=== PATIENT | male | born 1970 | race Caucasian/White ===

== ENCOUNTER 2016-10-07 10:33 | Emergency (ER) | payer MEDICARE ==
[2016-10-07 10:55] VITALS: TEMP 97.5
--- NOTE | 2016-10-07 11:10 | ED.PDOC ---
History of Present Illness - General Chief Complaint: Problem Stated Complaint: decreased appetite, urinary hesitancy Time Seen by Provider: 10/07/16 11:04 Source: patient Exam Limitations: no limitations - History of Present Illness Initial Comments: Mr. Christ Philip 46 y/o male stated that he has chronic alcoholism drinking a quart of whisky everyday the last 25 years and went for detox x 1 but paid more than $100 does want to go back anymore. Had history of chronic pancreatitis and pancreatic pseudocyst which was drained 3 x in 2016.His last drink was an hour ago.Brought by because of decrease appetite and urinary hesitancy. Timing/Duration: intermittent Improving Factors: nothing Worsening Factors: nothing Associated Symptoms: loss of appetite Allergies/Adverse Reactions: Allergies Penicillins Allergy (Verified 10/07/16 10:55) Home Medications: Ambulatory Orders Lisinopril 20 mg PO DAILY 04/24/14 Metoprolol Tartrate [Lopressor] 50 mg PO BID 04/24/14 Trazodone HCl 100 mg PO BEDTIME 04/24/14 Furosemide 40 mg PO DAILY 08/12/14 Insulin Glargine 100U/ml [Lantus] 30 unit SUBCU BEDTIME 08/12/14 Spironolactone [Aldactone] 25 mg PO BID #60 tab 03/14/15 Insulin Aspart [Novolog] 100 unit SC .SLIDING SCALE PRN 07/27/15 LORazepam [Ativan] 1 mg PO TID PRN 07/27/15 Acetaminophen W/ Codeine [Tylenol W/ CODEINE #3] 1 ea PO Q6HR PRN #15 11/07/15 Buspirone HCl 10 mg PO TID PRN 11/07/15 Ciprofloxacin [Cipro] 500 mg PO BID #20 tab 11/07/15 Levalbuterol Nebs [Xopenex NEBS] 1.25 mg NEB RTQ8 PRN 11/07/15 Sertraline HCl [Zoloft] 100 mg PO DAILY 11/07/15 Varenicline Tartrate [Chantix] 1 mg PO BID 11/07/15 Acamprosate Calcium [Acamprosate Calcium Dr] 666 mg PO TID #180 tab 10/07/16 B-Complex Vitamins [Vitamin B-Complex] 1 tab PO BID #120 tab 10/07/16 Review of Systems - Review of Systems Constitutional: States: see HPI, other - loss of appetite EENTM: States: no symptoms reported Respiratory: States: no symptoms reported Cardiology: States: no symptoms reported Gastrointestinal/Abdominal: States: no symptoms reported Genitourinary: States: no symptoms reported Musculoskeletal: States: no symptoms reported Skin: States: no symptoms reported Neurological: States: no symptoms reported Endocrine: States: no symptoms reported Past Medical History (General) - Patient Medical History Hx Seizures: No Hx Stroke: No Hx Dementia: No Hx Asthma: No Hx of COPD: Yes Hx Cardiac Disorders: Yes Hx Congestive Heart Failure: Yes Hx Pacemaker: No Hx Hypertension: Yes Hx Thyroid Disease: No Hx Diabetes: Yes Hx Gastroesophageal Reflux: Yes - liver disease Hx Renal Disease: No Hx of HIV: No Hx MRSA: No Hx Other PMH: Yes - chronic alcoholism;chronic pancreatitis with pseudocyst Surgical History: other - drainage of pseudocyst - Vaccination History Hx Tetanus, Diphtheria Vaccination: No Hx Influenza Vaccination: Yes Hx Pneumococcal Vaccination: Yes - Social History Hx Tobacco Use: Yes Hx Chewing Tobacco Use: No Hx Alcohol Use: Yes - pint of wiskey daily Hx Substance Use: No Hx Substance Use Treatment: No Hx Depression: Yes Hx Physical Abuse: No Hx Emotional Abuse: No Hx Suspected Abuse: No - Activities of Daily Living Hospice Agency (if applicable):: None - Female History Patient is a Female of Child Bearing Age (10 -59 yrs old): No Patient : No Family Medical History - Family History Mother Family History: No Known Name: Maggie Johnson Age (years): 66 Living Status: Still Living Hx Family Asthma: No Hx Family Congestive Heart Failure: No Hx Family Hypertension: No Hx Family Stroke: No Hx Cardiac Disease: No Hx Family Diabetes: Yes Hx Family Cancer: No Physical Exam - Physical Exam General Appearance: Alert, Comfortable, No apparent distress Eye Exam: bilateral normal Ears, Nose, Throat: hearing grossly normal, normal ENT inspection, normal pharynx Neck: non-tender, full range of motion, supple Respiratory: chest non-tender, lungs clear, normal breath sounds, no respiratory distress Cardiovascular/Chest: normal peripheral pulses, regular rate, rhythm, no edema, no murmur Peripheral Pulses: radial,right: 2+, radial,left: 2+ Gastrointestinal/Abdominal: normal bowel sounds, non tender, soft, no organomegaly, no pulsatile mass Back Exam: normal inspection, no CVA tenderness, no vertebral tenderness Extremity: normal range of motion, non-tender, normal inspection, no calf tenderness Neurologic: no motor/sensory deficits, alert, normal mood/affect, oriented x 3 Skin Exam: normal color, warm/dry Lymphatic: no adenopathy Progress - Results/Orders Results/Orders: 10/07/16 11:24 Chest,1 View [RAD] Stat URINALYSIS Stat 10/07/16 11:30 Multiple Vitamin Inj [MVI Injectable] 10 ml Thiamine HCl Inj 100 mg Sodium Chloride 0.9% 1000ML [Ns 1000 ml] 1,000 ml IVS Q24H Laboratory Results WBC 11.5 K/mm3 (4.8-10.8) H 10/07/16 11:37 RBC 5.42 M/mm3 (4.70-6.10) 10/07/16 11:37 Hgb 18.9 gm/dL (14.0-18.0) H 10/07/16 11:37 Hct 53.9 % (42.0-52.0) H 10/07/16 11:37 MCV 99.5 fl (80.0-94.0) H 10/07/16 11:37 MCH 34.8 pg (27.0-31.0) H 10/07/16 11:37 MCHC 35.1 g/dL (33.0-37.0) 10/07/16 11:37 RDW 13.3 % (11.5-14.5) 10/07/16 11:37 Plt Count 191 K/mm3 (130-400) 10/07/16 11:37 MPV 6.9 fl (7.40-10.4) L 10/07/16 11:37 Absolute Neuts (auto) 8.10 K/uL (1.8-6.8) H 10/07/16 11:37 Absolute Lymphs (auto) 2.10 K/uL (1.0-3.4) 10/07/16 11:37 Absolute Monos (auto) 1.10 K/uL (0.2-0.8) H 10/07/16 11:37 Absolute Eos (auto) 0.20 K/uL (0.0-0.4) 10/07/16 11:37 Absolute Basos (auto) 0.10 K/uL (0.0-0.1) 10/07/16 11:37 Neutrophils % 70.1 % (42.0-78.0) 10/07/16 11:37 Lymphocytes % 17.9 % (20.0-50.0) L 10/07/16 11:37 Monocytes % 9.9 % (2.0-9.0) H 10/07/16 11:37 Eosinophils % 1.3 % (1.0-5.0) 10/07/16 11:37 Basophils % 0.8 % (0.0-2.0) 10/07/16 11:37 Sodium 136 mmol/L (135-145) 10/07/16 11:37 Potassium 3.0 mmol/L (3.6-5.0) L 10/07/16 11:37 Chloride 97 mmol/L (101-111) L 10/07/16 11:37 Carbon Dioxide 28 mmol/L (21-31) 10/07/16 11:37 Anion Gap 14.0 (12-18) 10/07/16 11:37 BUN 12 mg/dL (7-18) 10/07/16 11:37 Creatinine 0.90 mg/dL (0.6-1.3) 10/07/16 11:37 BUN/Creatinine Ratio 13.3 (10-20) 10/07/16 11:37 Random Glucose 186 mg/dL (70-105) H 10/07/16 11:37 Serum Osmolality 276.6 mOsm/L (275-295) 10/07/16 11:37 Calcium 8.1 mg/dL (8.4-10.2) L 10/07/16 11:37 Total Bilirubin 1.0 mg/dL (0.2-1.0) 10/07/16 11:37 AST 35 IU/L (10-42) 10/07/16 11:37 ALT 25 IU/L (10-60) 10/07/16 11:37 Alkaline Phosphatase 137 IU/L (42-121) H 10/07/16 11:37 Serum Total Protein 6.2 gm/dL (6.4-8.2) L 10/07/16 11:37 Albumin 3.1 g/dl (3.2-5.5) L 10/07/16 11:37 Globulin 3.1 gm/dL (2.3-3.5) 10/07/16 11:37 Albumin/Globulin Ratio 1.0 (1.1-1.9) L 10/07/16 11:37 Vital Signs - 8 hr 10/07/16 10/07/16 10:37 12:30 Temperature 97.5 F L Pulse Rate [ 99 H 77 pulse ox] Respiratory 20 20 Rate Blood Pressure 137/80 128/97 [Left Arm] O2 Sat by Pulse 98 94 L Oximetry 10/07/16 11:30 Multiple Vitamin Inj [MVI Injectable] 10 ml Thiamine HCl Inj 100 mg Sodium Chloride 0.9% 1000ML [Ns 1000 ml] 1,000 ml IVS Q24H Laboratory Results WBC 11.5 K/mm3 (4.8-10.8) H 10/07/16 11:37 RBC 5.42 M/mm3 (4.70-6.10) 10/07/16 11:37 Hgb 18.9 gm/dL (14.0-18.0) H 10/07/16 11:37 Hct 53.9 % (42.0-52.0) H 10/07/16 11:37 MCV 99.5 fl (80.0-94.0) H 10/07/16 11:37 MCH 34.8 pg (27.0-31.0) H 10/07/16 11:37 MCHC 35.1 g/dL (33.0-37.0) 10/07/16 11:37 RDW 13.3 % (11.5-14.5) 10/07/16 11:37 Plt Count 191 K/mm3 (130-400) 10/07/16 11:37 MPV 6.9 fl (7.40-10.4) L 10/07/16 11:37 Absolute Neuts (auto) 8.10 K/uL (1.8-6.8) H 10/07/16 11:37 Absolute Lymphs (auto) 2.10 K/uL (1.0-3.4) 10/07/16 11:37 Absolute Monos (auto) 1.10 K/uL (0.2-0.8) H 10/07/16 11:37 Absolute Eos (auto) 0.20 K/uL (0.0-0.4) 10/07/16 11:37 Absolute Basos (auto) 0.10 K/uL (0.0-0.1) 10/07/16 11:37 Neutrophils % 70.1 % (42.0-78.0) 10/07/16 11:37 Lymphocytes % 17.9 % (20.0-50.0) L 10/07/16 11:37 Monocytes % 9.9 % (2.0-9.0) H 10/07/16 11:37 Eosinophils % 1.3 % (1.0-5.0) 10/07/16 11:37 Basophils % 0.8 % (0.0-2.0) 10/07/16 11:37 Sodium 136 mmol/L (135-145) 10/07/16 11:37 Potassium 3.0 mmol/L (3.6-5.0) L 10/07/16 11:37 Chloride 97 mmol/L (101-111) L 10/07/16 11:37 Carbon Dioxide 28 mmol/L (21-31) 10/07/16 11:37 Anion Gap 14.0 (12-18) 10/07/16 11:37 BUN 12 mg/dL (7-18) 10/07/16 11:37 Creatinine 0.90 mg/dL (0.6-1.3) 10/07/16 11:37 BUN/Creatinine Ratio 13.3 (10-20) 10/07/16 11:37 Random Glucose 186 mg/dL (70-105) H 10/07/16 11:37 Serum Osmolality 276.6 mOsm/L (275-295) 10/07/16 11:37 Calcium 8.1 mg/dL (8.4-10.2) L 10/07/16 11:37 Total Bilirubin 1.0 mg/dL (0.2-1.0) 10/07/16 11:37 AST 35 IU/L (10-42) 10/07/16 11:37 ALT 25 IU/L (10-60) 10/07/16 11:37 Alkaline Phosphatase 137 IU/L (42-121) H 10/07/16 11:37 Serum Total Protein 6.2 gm/dL (6.4-8.2) L 10/07/16 11:37 Albumin 3.1 g/dl (3.2-5.5) L 10/07/16 11:37 Globulin 3.1 gm/dL (2.3-3.5) 10/07/16 11:37 Albumin/Globulin Ratio 1.0 (1.1-1.9) L 10/07/16 11:37 Urine Color Yellow (Yellow) 10/07/16 12:40 Urine Appearance Clear (Clear) 10/07/16 12:40 Urine pH 6.5 (4.5-7.8) 10/07/16 12:40 Ur Specific Redig 1.015 (1.005-1.030) 10/07/16 12:40 Urine Protein Trace mg/dL 10/07/16 12:40 Urine Glucose (UA) Negative mg/dL (Negative) 10/07/16 12:40 Urine Ketones Negative mg/dL (NEGATIVE) 10/07/16 12:40 Urine Blood Negative (Negative) 10/07/16 12:40 Urine Nitrite Negative 10/07/16 12:40 Urine Bilirubin Negative (NEGATIVE) 10/07/16 12:40 Urine Urobilinogen 2.0 mg/dL (0.2-1.0) H 10/07/16 12:40 Ur Leukocyte Esterase Negative (Negative) 10/07/16 12:40 Urine RBC 0 /hpf 10/07/16 12:40 Urine WBC 0 /hpf 10/07/16 12:40 Ur Epithelial Cells 0-1 /hpf 10/07/16 12:40 Urine Bacteria 0 10/07/16 12:40 10/07/16 11:30 Multiple Vitamin Inj [MVI Injectable] 10 ml Thiamine HCl Inj 100 mg Sodium Chloride 0.9% 1000ML [Ns 1000 ml] 1,000 ml IVS Q24H Laboratory Results WBC 11.5 K/mm3 (4.8-10.8) H 10/07/16 11:37 RBC 5.42 M/mm3 (4.70-6.10) 10/07/16 11:37 Hgb 18.9 gm/dL (14.0-18.0) H 10/07/16 11:37 Hct 53.9 % (42.0-52.0) H 10/07/16 11:37 MCV 99.5 fl (80.0-94.0) H 10/07/16 11:37 MCH 34.8 pg (27.0-31.0) H 10/07/16 11:37 MCHC 35.1 g/dL (33.0-37.0) 10/07/16 11:37 RDW 13.3 % (11.5-14.5) 10/07/16 11:37 Plt Count 191 K/mm3 (130-400) 10/07/16 11:37 MPV 6.9 fl (7.40-10.4) L 10/07/16 11:37 Absolute Neuts (auto) 8.10 K/uL (1.8-6.8) H 10/07/16 11:37 Absolute Lymphs (auto) 2.10 K/uL (1.0-3.4) 10/07/16 11:37 Absolute Monos (auto) 1.10 K/uL (0.2-0.8) H 10/07/16 11:37 Absolute Eos (auto) 0.20 K/uL (0.0-0.4) 10/07/16 11:37 Absolute Basos (auto) 0.10 K/uL (0.0-0.1) 10/07/16 11:37 Neutrophils % 70.1 % (42.0-78.0) 10/07/16 11:37 Lymphocytes % 17.9 % (20.0-50.0) L 10/07/16 11:37 Monocytes % 9.9 % (2.0-9.0) H 10/07/16 11:37 Eosinophils % 1.3 % (1.0-5.0) 10/07/16 11:37 Basophils % 0.8 % (0.0-2.0) 10/07/16 11:37 Sodium 136 mmol/L (135-145) 10/07/16 11:37 Potassium 3.0 mmol/L (3.6-5.0) L 10/07/16 11:37 Chloride 97 mmol/L (101-111) L 10/07/16 11:37 Carbon Dioxide 28 mmol/L (21-31) 10/07/16 11:37 Anion Gap 14.0 (12-18) 10/07/16 11:37 BUN 12 mg/dL (7-18) 10/07/16 11:37 Creatinine 0.90 mg/dL (0.6-1.3) 10/07/16 11:37 BUN/Creatinine Ratio 13.3 (10-20) 10/07/16 11:37 Random Glucose 186 mg/dL (70-105) H 10/07/16 11:37 Serum Osmolality 276.6 mOsm/L (275-295) 10/07/16 11:37 Calcium 8.1 mg/dL (8.4-10.2) L 10/07/16 11:37 Total Bilirubin 1.0 mg/dL (0.2-1.0) 10/07/16 11:37 AST 35 IU/L (10-42) 10/07/16 11:37 ALT 25 IU/L (10-60) 10/07/16 11:37 Alkaline Phosphatase 137 IU/L (42-121) H 10/07/16 11:37 Serum Total Protein 6.2 gm/dL (6.4-8.2) L 10/07/16 11:37 Albumin 3.1 g/dl (3.2-5.5) L 10/07/16 11:37 Globulin 3.1 gm/dL (2.3-3.5) 10/07/16 11:37 Albumin/Globulin Ratio 1.0 (1.1-1.9) L 10/07/16 11:37 Urine Color Yellow (Yellow) 10/07/16 12:40 Urine Appearance Clear (Clear) 10/07/16 12:40 Urine pH 6.5 (4.5-7.8) 10/07/16 12:40 Ur Specific Redig 1.015 (1.005-1.030) 10/07/16 12:40 Urine Protein Trace mg/dL 10/07/16 12:40 Urine Glucose (UA) Negative mg/dL (Negative) 10/07/16 12:40 Urine Ketones Negative mg/dL (NEGATIVE) 10/07/16 12:40 Urine Blood Negative (Negative) 10/07/16 12:40 Urine Nitrite Negative 10/07/16 12:40 Urine Bilirubin Negative (NEGATIVE) 10/07/16 12:40 Urine Urobilinogen 2.0 mg/dL (0.2-1.0) H 10/07/16 12:40 Ur Leukocyte Esterase Negative (Negative) 10/07/16 12:40 Urine RBC 0 /hpf 10/07/16 12:40 Urine WBC 0 /hpf 10/07/16 12:40 Ur Epithelial Cells 0-1 /hpf 10/07/16 12:40 Urine Bacteria 0 10/07/16 12:40 - EKG/XRAY/CT EKG: Sinus, no ST T wave changes Comments: heart rate-58 XRAY: chest - no acute abnormalities/radiologist Departure - Departure Clinical Impression: Alcoholism with alcohol dependence Qualifiers: Substance use status: unspecified alcohol-induced disorder Qualified Code(s): F10.29 - Alcohol dependence with unspecified alcohol-induced disorder Time of Disposition: 12:28 Disposition: Discharge to Home or Self Care Condition: Fair Departure Forms: ED Discharge - Pt. Copy, Patient Portal Self Enrollment Instructions: Alcohol Abuse and Alcoholism, DI for Alcohol Abuse and Alcoholism Referrals: India Francis NP [Primary Care Provider] - 1-2 Weeks Prescriptions: Acamprosate Calcium [Acamprosate Calcium Dr] 666 mg PO TID #180 tab B-Complex Vitamins [Vitamin B-Complex] 1 tab PO BID #120 tab Home Medications: Ambulatory Orders Lisinopril 20 mg PO DAILY 04/24/14 Metoprolol Tartrate [Lopressor] 50 mg PO BID 04/24/14 Trazodone HCl 100 mg PO BEDTIME 04/24/14 Furosemide 40 mg PO DAILY 08/12/14 Insulin Glargine 100U/ml [Lantus] 30 unit SUBCU BEDTIME 08/12/14 Spironolactone [Aldactone] 25 mg PO BID #60 tab 03/14/15 Insulin Aspart [Novolog] 100 unit SC .SLIDING SCALE PRN 07/27/15 LORazepam [Ativan] 1 mg PO TID PRN 07/27/15 Acetaminophen W/ Codeine [Tylenol W/ CODEINE #3] 1 ea PO Q6HR PRN #15 11/07/15 Buspirone HCl 10 mg PO TID PRN 11/07/15 Ciprofloxacin [Cipro] 500 mg PO BID #20 tab 11/07/15 Levalbuterol Nebs [Xopenex NEBS] 1.25 mg NEB RTQ8 PRN 11/07/15 Sertraline HCl [Zoloft] 100 mg PO DAILY 11/07/15 Varenicline Tartrate [Chantix] 1 mg PO BID 11/07/15 Acamprosate Calcium [Acamprosate Calcium Dr] 666 mg PO TID #180 tab 10/07/16 B-Complex Vitamins [Vitamin B-Complex] 1 tab PO BID #120 tab 10/07/16 Additional Instructions: FOLLOW UP WITH [facility] for alcohol detox,Recheck with primary md 10/08/2016
[2016-10-07] MEDS ORDERED: MULTIPLE VITAMIN INJ 10 ML, THIAMINE HCL INJ 100 MG in SODIUM CHLORIDE 0.9% 1000ML 1,00... IVS SCH (11:30)
[2016-10-07] MEDS ORDERED: SODIUM CHLORIDE 0.9% 1000ML 1,000 ML ONE (11:36)
[2016-10-07] MEDS ORDERED: MULTIPLE VITAMIN 10 ML VIAL ONE (11:36)
[2016-10-07] MEDS ORDERED: THIAMINE HCL INJ 100 MG/ML VIAL ONE (11:36)
--- NOTE | 2016-10-07 12:12 | RAD ---
SINGLE VIEW CHEST X-RAY. 10/07/2016 11:24 AM CDT INDICATION: Cough TECHNIQUE: Single frontal view of the chest was performed. COMPARISON: Chest x-ray 10/13/2015 FINDINGS: Mild peribronchial cuffing and prominent bilateral vasculature. The lungs are clear without consolidation. There are no effusions. No evidence of pneumothorax. The cardiomediastinal silhouette is stable. Osseous structures are unchanged. The visualized abdomen is unremarkable. IMPRESSION: No acute cardiopulmonary process. Electronically signed by: Carlitos Dey MD 10/07/2016 12:12 PM CDT
[2016-10-07 13:30] VITALS: BP 132/105; O2SAT 95
== END 2016-10-07 13:31 | disposition home or self-care (01) ==
LOC: ER 10:33
DX: F10.29 Alcohol dependence with unspecified alcohol-induced disorder (principal); K86.1 Other chronic pancreatitis; I11.0 Hypertensive heart disease with heart failure; I50.9 Heart failure, unspecified; J44.9 Chronic obstructive pulmonary disease, unspecified; K21.9 Gastro-esophageal reflux disease without esophagitis; Z88.0 Allergy status to penicillin; Z79.899 Other long term (current) drug therapy; Z79.4 Long term (current) use of insulin; Z87.891 Personal history of nicotine dependence
CPT/HCPCS: 36415; 71010; 80053; 81001; 85025; J3411; J7030

== ENCOUNTER → 2017-01-30 | Outpatient (CLI) | payer MEDICARE | END | disposition home or self-care (01) | LOC: GRHH 10:33 | DX: I50.9 Heart failure, unspecified (principal); E11.9 Type 2 diabetes mellitus without complications ==

== ENCOUNTER 2017-02-05 12:27 | Inpatient (IN) | payer MEDICARE ==
--- NOTE | 2017-02-05 12:28 | HP ---
SUPERVISING PHYSICIAN: RICH HOOD MD CHIEF COMPLAINT: Shortness of breath. HISTORY OF PRESENT ILLNESS: Mr. Philip is a 47 year-old male patient of Dr. Liao's at [facility]. He was seen in the clinic today for a followup from previous detox and an upper respiratory illness. It was noted that in the clinic he had a productive cough and was congested and was having significant shortness of breath with some wheezing and some lower extremity edema. He had been recently released from inpatient detox rehabilitation last week. On examination in the clinic it was noted that he was having some inspiratory expiratory wheezing, some crackles. He was given albuterol treatment that showed some increased air entry but noted that his 02 saturations on room air were in the 89% range. He was given additional treatment but with ambulation the patient was showing 80% on room air with no oxygen. He was placed on oxygen and increased to only 92% at that time and then given additional treatment and increased to 97% but continued to show decreased ambulatory effort without any supplemental oxygen. Given that he has a history of extensive chronic obstructive pulmonary disease from smoking multiple years and that he is not able to maintain 02 saturations without oxygen supplementation, Dr. Liao requested the patient be directly admitted for acute exacerbation of chronic obstructive pulmonary disease. The patient was directly admitted from the clinic to the medical/surgical floor for continuation of treatment and further evaluation. PAST MEDICAL HISTORY: 1. History of pancreatitis. 2. Diabetes mellitus type 2 on insulin therapy for the last several years. 3. Congestive heart failure without any current echocardiogram for review. 4. History of hypertension. 5. History of extensive alcohol abuse having been recently discharged from inpatient rehabilitation facility in the last 2 weeks. 6. Chronic obstructive pulmonary disease. 7. History of chronic tobacco abuse. PAST SURGICAL HISTORY: 1. Pancreatic stenting in 2017. CURRENT MEDICATIONS: Please refer to updated verified list of medications in medical records. Currently listed are: 1. Buspirone 15 mg 3 times a day as needed. 2. Vitamin B12 complex, 1 tablet twice a day. 3. Calcium supplement 666 mg 3 times a day. 4. Lasix 40 mg daily. 5. Xopenex treatments 1.25 mg every 8 hours as needed p.r.n. 6. Ativan 1 mg 3 times a day if needed. 7. Lopressor 25 mg twice a day. 8. Trazodone 100 mg at bedtime. 9. Spironolactone 25 mg twice a day. 10. Zoloft 100 mg daily. ALLERGIES: PENICILLIN FAMILY HISTORY: Positive for diabetes, pulmonary embolism, hypertension. SOCIAL HISTORY: The patient lives at home with his . 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 He does have a history of smoking a pack of cigarettes per day and currently he is a smoker. He drinks on a regular basis and admits that he drinks at least a half gallon of whiskey daily but had just been recently in an outpatient rehabilitation facility and has not had a drink in a little over a week to two weeks. REVIEW OF SYSTEMS: CONSTITUTIONAL: Reports that he has no fevers, chills, but notes that he has been feeling weak with general malaise and shaky. HEENT: He notes that he has had some nasal congestion with some shortness of breath and lightheadedness on standing. CHEST: Notes that he has had a cough, wheezing and some shortness of breath as noted in the history of present illness which has become more productive, yellow in nature and more purulent. ABDOMEN: No noted nausea or vomiting or diarrhea. . GENITOURINARY: Denies any dysuria, hematuria or other urinary symptoms. NEUROLOGICAL: Notes that he has some weakness, some dizziness but no syncopal episodes and has slight tremor which has been present for a length of time but has not worsened since discharge. EXTREMITIES: He has had some bilateral pedal edema. PHYSICAL EXAMINATION: VITAL SIGNS: Afebrile with temperature 98.8 with a pulse of 98, blood pressure 114/43, saturation 96% on nasal cannula at rest showing desaturations into the low 80s with room air with any exertional effort. Admission weight 68.0 kg. GENERAL: The patient appears ill-appearing and in some mild distress secondary to increased dyspnea. He is thin in appearance, well-kept. Appears to be well hydrated. He is alert and oriented. HEENT: Tympanic membranes are clear bilaterally. Pharynx is pink, moist with no lesions. NECK: Supple, non-tender with full range of motion. No jugular venous distention. CHEST: Lungs with notably decreased breath sounds throughout with inspiratory and expiratory wheezing in a prolonged expiratory phase. There were some faint rales noted on the left as well as right and continued wheezing throughout. CARDIOVASCULAR: Regular rate and rhythm without appreciable murmurs, rubs, or gallops. ABDOMEN: Soft, non-tender, positive bowel sounds. EXTREMITIES: No cyanosis, clubbing, or edema. NEUROLOGIC: He alert and oriented x 3. Facial features are symmetrical. Extraocular movements within normal limits. LABORATORY: White count on admission 9.3, hemoglobin 13.6, hematocrit 39.3. RBC indices indicated a macrocytic hyperchromic presentation with platelet count being 217,000. Differential did show an early left shift. Coagulation studies showed a PT of 11.8 with PTT of 29.6. Chemistries showed hyponatremia with a sodium of 132, potassium 3.6, C02 of 26 with BUN less than 5, creatinine 0.6. Glucose 157, calcium 7.5. Liver functions showed normal bilirubin at 0.4 but elevated direct bilirubin at 0.3. AST and ALT within normal limits. Alkaline phosphatase elevated at 125. BNP normal at 50.5. Amylase and lipase both normal. Serum total protein low at 4.8 as well as albumin at 1.6. Urinalysis within normal limits. ,MICROBIOLOGY: Blood cultures pending. Influenza type A and B by antigen negative for both. RADIOLOGY: Chest x-ray per radiology interpretation shows normal heart size with lung lazo being clear with no acute chest process initially on examination. ASSESSMENT: 1. Acute exacerbation of chronic obstructive pulmonary disease with 02 saturations on room air with mild respiratory distress prior to admission. 2. Acute bronchitis secondary to #1 with concerns for early pneumonia, community acquired. 3. History of congestive heart failure with normal BNP on admission with no echocardiogram on admission for review with the patient having bilateral lower extremity edema. 4. Extensive history of ethanol intake, recently having finished inpatient rehabilitation within the last week and a half. 5. History of pancreatic pseudocyst. 6. Diabetes mellitus type 2, on insulin. 7. Hypertension. 8. History of pancreatitis requiring pancreatic stenting in 2017. 9. Chronic tobacco abuse. 10. Electrolyte imbalance with hyponatremia in patient with concerns for developing early pneumonia. PLAN: The patient is to be directly to the medical/surgical floor for initiation of antibiotic therapy and aggressive pulmonary hygiene. He will be started on Duoneb treatments along with parenteral antibiotics to include azithromycin and Rocephin, with cultures for sputum pending. Will plan to start him on at least 1 liter of saline in efforts to correct his sodium level and closely monitoring his I&Os and respiratory effort. Will resume his home medications tomorrow that include Aldactone and Lasix after further clinical evaluation. Will start him on a 21 mg nicotine patch in efforts to assist with smoking cessation. He will be started on Protonix for gastric protection as well as starting on a sliding scale as per protocol. After breathing treatment , it was noted that he was no longer having any significant wheezing, therefore , will hold off on steroids at this point and closely monitor. Hopefully, with a good 24 to 48 hours or aggressive pulmonary hygiene and antibiotic therapy, the patient will clinically show to be well enough to be continued in an outpatient setting treatment plan. Will monitor his I&O's closely and plan to repeat his laboratory studies in the morning to include a CBC and CMP. Will need to monitor for early signs of withdrawal, although just finished rehabilitation treatment plan and is on multiple medications. Those will be resumed once they are updated and verified in the computer. Anticipate length of stay to be at least 2 to 3 days and until clinical stable will continue to monitor and treat appropriately. #[id number] [facility]
[2017-02-05] MEDS ORDERED: DEXTROSE 50% 25 GM/50 ML SYG IV PRN (12:45)
[2017-02-05] MEDS ORDERED: ACETAMINOPHEN 325 MG TAB PO PRN (12:45)
[2017-02-05] MEDS ORDERED: ALBUTEROL SULFATE 2.5 MG/3 ML VIAL NEB PRN (12:45)
[2017-02-05] MEDS ORDERED: SODIUM CHLORIDE 0.9% (FLUSH) 10 ML SYG IV PRN (12:45)
[2017-02-05] MEDS ORDERED: GLUCAGON INJ 1 MG VIAL SUBCU PRN (12:45)
[2017-02-05] MEDS ORDERED: IV SET AND CAP CHANGE INJ INJ SCH (13:00)
[2017-02-05] MEDS ORDERED: cefTRIAXone SODIUM 1 GM VIAL ONE (13:31)
[2017-02-05] MEDS ORDERED: SODIUM CHL 0.9% 50ML MIN-BAG+ 50 ML IVPB ONE (13:31)
--- NOTE | 2017-02-05 13:31 | RAD ---
Chest two views INDICATION: COPD exacerbation COMPARISON: October 07 IMPRESSION: Normal heart size. Tortuous aorta. Lungs are clear. No acute chest process. Stable chest Electronically signed by: Dylon Marie MD 02/05/2017 1:29 PM CDT
[2017-02-05] MEDS: NICOTINE PATCH 21 MG TD SCH (13:33)
[2017-02-05] MEDS: cefTRIAXone SODIUM 1 GM in SODIUM CHL 0.9% 50ML MIN-BAG+ 50 ML IVPB SCH (13:34)
[2017-02-05] MEDS ORDERED: SODIUM CHLORIDE 0.9% 250ML 250 ML ONE (14:29)
[2017-02-05] MEDS ORDERED: AZITHROMYCIN IV 500 MG VIAL IVPB ONE (14:29)
[2017-02-05] MEDS: AZITHROMYCIN IV 500 MG in SODIUM CHLORIDE 0.9% 250ML 250 ML IVPB SCH (14:35)
[2017-02-05] MEDS ORDERED: PANTOPRAZOLE SODIUM IV 40 MG VIAL IV SCH (16:30)
[2017-02-05] MEDS: IPRATROPIUM/ALBUTEROL 3 ML VIAL INH SCH ×2 (16:35→20:15)
[2017-02-05] MEDS: KCL 20 MEQ/NS 1,000 ML IVS PRN (16:44)
[2017-02-05] MEDS: INSULIN LISPRO 100 UNITS/ML PEN SUBCU SCH ×2 (17:04→21:59)
[2017-02-05] MEDS ORDERED: LORazepam 1 MG TAB PO PRN (19:16)
[2017-02-05] MEDS ORDERED: METOPROLOL TARTRATE 25 MG TAB ONE (20:23)
[2017-02-05] MEDS ORDERED: busPIRone HCL 5 MG TAB ONE (20:24)
[2017-02-05] MEDS ORDERED: NON-FORMULARY MEDICATION 1 EA MIS (Buspirone Hcl [Buspirone Hcl] 15 MG) PO SCH (21:00)
[2017-02-05] MEDS ORDERED: METOPROLOL TARTRATE 25 MG PO SCH (21:00)
[2017-02-05] MEDS: traZODone HCL 100 MG TAB PO SCH (21:16)
[2017-02-05] MEDS: ACAMPROSATE CALCIUM 666 MG PO SCH (21:16)
[2017-02-05] MEDS: SPIRONOLACTONE 25 MG TAB PO SCH (21:16)
[2017-02-05] MEDS ORDERED: LEVALBUTEROL NEBS 1.25 MG/3 ML VIAL NEB PRN (22:43)
--- NOTE | 2017-02-05 22:44 | PCM.CORE ---
Physician DVT/VTE - Nurse DVT Assessment & Total Each Risk Factor Represents 3 Points: Medical PT with Hx of NH, CHF, Severe infection/sepsis Each Risk Factor Represents 1 Point: Age 41-60, Hx of smoking past year Each Risk Factor is 1 Point: Serious Lung disease (pnemonia <1month, COPD, emphysema,etc) DVT Assessment Score: 6 - 5 or more Very High Risk Treatments: Early Ambulation *, Sequential Compression Device Pharmacological: Enoxaparin 40mg SQ Daily
[2017-02-05] MEDS ORDERED: ENOXAPARIN SODIUM 40 MG/0.4 ML SYG SUBCU SCH (23:00)
[2017-02-05] MEDS: LEVALBUTEROL NEBS 1.25 MG/3 ML VIAL NEB SCH (23:46)
[2017-02-06] MEDS: KCL 20 MEQ/NS 1,000 ML IVS PRN ×3 (02:01→20:23)
[2017-02-06] MEDS: PANTOPRAZOLE SODIUM TAB 40 MG PO SCH (06:06)
--- NOTE | 2017-02-06 07:20 | RAD ---
Chest two views INDICATION: COPD exacerbation COMPARISON: February 05 IMPRESSION: Normal heart size. No focal infiltrate effusion or pneumothorax. Tortuous aorta. Stable chest Electronically signed by: Dylon Marie MD 02/06/2017 7:19 AM CDT
[2017-02-06] MEDS ORDERED: SPIRONOLACTONE 25 MG TAB ONE (07:53)
[2017-02-06] MEDS ORDERED: busPIRone HCL 5 MG TAB ONE (07:53)
[2017-02-06] MEDS ORDERED: METOPROLOL TARTRATE 25 MG TAB ONE (07:54)
[2017-02-06] MEDS ORDERED: FUROSEMIDE 40 MG TAB ONE (07:55)
[2017-02-06] MEDS: LEVALBUTEROL NEBS 1.25 MG/3 ML VIAL NEB SCH ×3 (08:01→23:35)
[2017-02-06] MEDS: FUROSEMIDE 40 MG TAB PO SCH (09:24)
[2017-02-06] MEDS: SPIRONOLACTONE 25 MG TAB PO SCH ×3 (09:24→20:27)
[2017-02-06] MEDS: NICOTINE PATCH 21 MG TD SCH (09:24)
[2017-02-06] MEDS: busPIRone HCL 5 MG TAB PO SCH ×3 (09:25→20:27)
[2017-02-06] MEDS: METOPROLOL TARTRATE 25 MG TAB PO SCH ×3 (09:25→16:55)
[2017-02-06] MEDS: INSULIN LISPRO 100 UNITS/ML PEN SUBCU SCH ×4 (09:32→21:32)
[2017-02-06] MEDS: ACAMPROSATE CALCIUM 666 MG PO SCH ×3 (09:34→20:28)
[2017-02-06] MEDS ORDERED: cefTRIAXone SODIUM 1 GM VIAL ONE (14:48)
[2017-02-06] MEDS ORDERED: SODIUM CHL 0.9% 50ML MIN-BAG+ 50 ML IVPB ONE (14:48)
[2017-02-06] MEDS ORDERED: SODIUM CHLORIDE 0.9% 250ML 250 ML ONE (14:48)
[2017-02-06] MEDS ORDERED: AZITHROMYCIN IV 500 MG VIAL IVPB ONE (14:49)
[2017-02-06] MEDS: cefTRIAXone SODIUM 1 GM in SODIUM CHL 0.9% 50ML MIN-BAG+ 50 ML IVPB SCH (14:58)
[2017-02-06] MEDS: AZITHROMYCIN IV 500 MG in SODIUM CHLORIDE 0.9% 250ML 250 ML IVPB SCH (16:10)
[2017-02-06] MEDS ORDERED: ENOXAPARIN SODIUM 40 MG/0.4 ML SYG SUBCU ONE (19:33)
[2017-02-06] MEDS: traZODone HCL 100 MG TAB PO SCH (20:27)
[2017-02-06] MEDS ORDERED: ENOXAPARIN SODIUM 40 MG/0.4 ML SYG SUBCU SCH (21:00)
--- NOTE | 2017-02-06 21:38 | PN ---
DATE: 02/06/17 SUBJECTIVE: The patient is sitting up in the bed feeling better. He has not been very active and is encouraged to increase his level of activities today. Have ordered an ambulation study to check on his requirements of oxygen before he is able to go home. He seems to be breathing better today than yesterday. Still with a cough with minimal sputum production. OBJECTIVE: Afebrile, pulse 105, blood pressure 112/79, room air 98%. LUNGS: Have diminished breath sounds with occasional rhonchi, especially in the left base area. HEART: Tones are regular. ABDOMEN: Soft. He is quite thin. He stopped smoking when he entered into the hospital and is encouraged to stay stopped if at all possible. LABORATORY: Potassium is up to 3.8, creatinine is 0.57, glucose 126, calcium is low at 7.2, but albumin is also very low at 1.6. Will try an increased protein supplement diet to assist, especially when he gets home. Awaiting ambulation studies to evaluate for need of oxygen use at home. ASSESSMENT: 1. Chronic obstructive pulmonary disease with an acute exacerbation with mild respiratory distress and hypoxia noted. 2. Acute bronchitis associated with the chronic obstructive pulmonary disease , must rule out early pneumonia community acquired. 3. History of congestive heart failure with a normal BNP on admission, yet with no echocardiogram for review with the patient presenting with some bilateral lower extremity edema. 4. Extensive history of ethanol intake recently having finished inpatient rehabilitation within the last 10 days. 5. History of pancreatic pseudocyst. 6. Diabetes mellitus type 2 on insulin. 7. Hypertension. 8. History of pancreatitis requiring pancreatic stenting in 2017. 9. Chronic tobacco abuse, still smoking. Encouraged to stop. 10. History of electrolyte imbalance with hyponatremia showing some improvement. PLAN: Await ambulation studies in anticipation of home with continued treatment course. The patient will require ongoing pulmonary hygiene. Special close attention to stopping all smoking must be most important and the clinic will work with him in that direction. Reevaluate in the morning. #[id number] [facility]ENTERMaggie
[2017-02-07] MEDS: KCL 20 MEQ/NS 1,000 ML IVS PRN (04:14)
[2017-02-07] MEDS: PANTOPRAZOLE SODIUM TAB 40 MG PO SCH (06:28)
[2017-02-07] MEDS ORDERED: SODIUM CHLORIDE 0.9% 250ML 0 ML ONE (07:22)
[2017-02-07] MEDS ORDERED: SODIUM CHL 0.9% 50ML MIN-BAG+ 50 ML IVPB ONE (07:22)
[2017-02-07] MEDS ORDERED: AZITHROMYCIN IV 500 MG VIAL IVPB ONE (07:23)
[2017-02-07] MEDS ORDERED: cefTRIAXone SODIUM 1 GM VIAL ONE (07:23)
[2017-02-07] MEDS: METOPROLOL TARTRATE 25 MG TAB PO SCH (07:47)
[2017-02-07 07:48] VITALS: O2SAT 100
[2017-02-07] MEDS: INSULIN LISPRO 100 UNITS/ML PEN SUBCU SCH (08:14)
[2017-02-07] MEDS: LEVALBUTEROL NEBS 1.25 MG/3 ML VIAL NEB SCH (08:20)
[2017-02-07] MEDS: NICOTINE PATCH 21 MG TD SCH (09:28)
[2017-02-07] MEDS: FUROSEMIDE 40 MG TAB PO SCH (09:29)
[2017-02-07] MEDS: busPIRone HCL 5 MG TAB PO SCH (09:29)
[2017-02-07] MEDS: SPIRONOLACTONE 25 MG TAB PO SCH (09:29)
[2017-02-07] MEDS: ACAMPROSATE CALCIUM 666 MG PO SCH (09:35)
[2017-02-07 10:43] VITALS: BP 116/86; TEMP 99
--- NOTE | 2017-02-07 10:49 | DS ---
DISCHARGE DIAGNOSIS: 1. Chronic obstructive pulmonary disease with an acute exacerbation with mild respiratory distress and hypoxia, requiring bronchodilation and pulmonary hygiene and initiation of gentle pulmonary rehab exercise program. 2. Acute bronchitis associated with the chronic obstructive pulmonary disease with no evidence of a pneumonia at this time and no organisms on sputum culture. 3. History of congestive heart failure with a normal BNP on admission, yet with no echocardiogram for review with the patient presenting with some bilateral lower extremity edema. 4. Extensive history of ethanol intake recently having finished inpatient rehabilitation within ten days prior to admission. 5. History of pancreatic pseudocyst. 6. History of diabetes mellitus type 2 on insulin to assist with control. 7. History of hypertension. 8. History of pancreatitis requiring pancreatic stenting in 2017. 9. Chronic tobacco abuse, still smoking and encouraged to stop completely. 10. History of hyponatremia, showing improvement with supplementation. HISTORY OF PRESENT ILLNESS: This 47-year-old, white male was admitted to the hospital as a direct admit from [facility] where he was seen by Dr. Liao. He had significant shortness of breath with productive cough, respiratory congestion, wheezing, and lower extremity edema. He had failed outpatient therapy and had recently been discharged from an inpatient detox program the week before. He had desaturation down to 80% on room air with symptoms of dyspnea present. He quickly recovered, especially with supplemental oxygen utilized. He was admitted to the hospital for specific treatment fo ran acute exacerbation of his chronic obstructive pulmonary disease and further treatment for an underlying bronchitis versus the development of an early pneumonia process. LABORATORY: Initial sodium 132, up to 136 with supplement. Potassium 3.6, up to 3.8. BUN low. Creatinine 0.66. Glucose was over 400 at one time and was down to 131 fasting on the morning of discharge. Beta natriuretic peptide was 50. Total bilirubin 0.4. Alkaline phosphatase 125, albumin 1.6, lipase 20. White count 9,300, hemoglobin 12.2 at discharge. INR 1.04. Urinalysis generally clean. Cultures of blood and sputum were negative except for some usual kim on the sputum. Influenza A/B nasal swab negative. Chest x-ray on the day of discharge showed no acute findings. HOSPITAL COURSE: The patient was soon ambulating and feeling much improved with much improved oxygenation on exertion compared to his admission study. He showed further improvement and was given specific instructions on his pulmonary hygiene. PLAN: Anticipate further outpatient followup, which the patient is very comfortable in assuming. Increase activity on a regular basis. Diabetic diet is going to be important. To be seen by [facility], Dr. Liao , in the next week. Must stop all smoking. Stay active with walking program. Followup with home medications. Closely monitor the diabetes with good management decisions. The clinic will assist if questions arise regarding ongoing health questions. Return if not improving. #[id number] [facility] DIVISIONMaggie
== END 2017-02-07 10:22 | disposition home or self-care (01) | DRG 191 ==
LOC: INTOOBSV 12:27 → MS 12:27 → OBSVTOIN 12:27
PROVIDERS: ADMIT Nurse Practitioner Family; ATTEND Emergency Medicine
DX: J44.1 Chronic obstructive pulmonary disease with (acute) exacerbation (principal); E87.1 Hypo-osmolality and hyponatremia; J20.9 Acute bronchitis, unspecified; I11.0 Hypertensive heart disease with heart failure; I50.9 Heart failure, unspecified; E11.9 Type 2 diabetes mellitus without complications; F17.210 Nicotine dependence, cigarettes, uncomplicated; Z95.828 Presence of other vascular implants and grafts; Z88.0 Allergy status to penicillin; Z79.899 Other long term (current) drug therapy

== ENCOUNTER → 2017-02-11 | Outpatient (CLI) | payer MEDICARE | LOC: GRHH 15:27 | DX: R19.7 Diarrhea, unspecified (principal) ==

== ENCOUNTER → 2017-02-12 | Outpatient (CLI) | payer MEDICARE ==
--- NOTE | 2017-02-12 17:21 | CT ---
PROCEDURE: Abdomen w/Contrast Clinical History: ALCOHOLIC CIRRHOSIS Indication: Same as above Comparison: 11/07/2015 and can be further assessed with a thin section noncontrast and contrast-enhanced CT of the pancreas Technique: CT of the abdomen was done with intravenous contrast followed by orthogonal reconstructions. Oral contrast was not given for the study. The patient was injected with contrast intravenously, without any documented immediate adverse reactions. This exam was performed according to our departmental dose-optimization program, which includes automated exposure control, adjustment of the mA and/or KV according to the patient's size and/or use of iterative reconstruction technique. Findings: Images through the lung bases do not show any focal infiltrates or pleural effusions. There is fatty metamorphosis of the liver. The liver shows slightly nodular contour suspicious for underlying changes of cirrhosis. There is no hepatomegaly. The gallbladder shows presence of significant intraluminal layering sludge/gallstones. In the mid body of the pancreas there is a well-circumscribed 2.9 x 3.9 x 3.0 cm cystic lesion which could represent a pancreatic pseudocyst or cystic tumor of the pancreas. Since the prior study done on 11/07/2015 there has been interval removal of the common duct stent. There is presence of mild to moderate amount of ascites fluid in the evaluated peritoneal cavity. There is mild generalized soft tissue anasarca. The spleen and the bilateral adrenal glands appear unremarkable. The bilateral kidneys enhance in a normal fashion, without any evidence of hydronephrosis. The visualized portions of the bilateral ureters are unremarkable. The visualized small bowel and large appear unremarkable, without any evidence of small bowel obstruction or bowel wall thickening or CT evidence of acute diverticulitis in the visualized segments of the large bowel. There is no pathological lymphadenopathy in the visualized retroperitoneum or the abdomen . There is no evidence of free air in the visualized portions of the abdomen . There is no clinically significant abdominal aortic aneurysm in the visualized portion of the abdominal aorta.. Atherosclerotic wall calcifications and intramural thrombus is seen in the abdominal aorta There is no clinically significant ventral hernia. Note is made of mild degenerative change in the visualized lower thoracic and the lumbar spine The visualized paravertebral soft tissues are unremarkable. Impression: There is fatty metamorphosis of the liver. The liver shows slightly nodular contour suspicious for underlying changes of cirrhosis. There is no hepatomegaly. The gallbladder shows presence of significant intraluminal layering sludge/gallstones. In the mid body of the pancreas there is a well-circumscribed 2.9 x 3.9 x 3.0 cm cystic lesion which could represent a pancreatic pseudocyst or cystic tumor of the pancreas. Since the prior study done on 11/07/2015 there has been interval removal of the common duct stent. There is presence of mild to moderate amount of ascites fluid in the evaluated peritoneal cavity. There is mild generalized soft tissue anasarca. Electronically signed by: Gurwinder Cordova MD 02/12/2017 5:19 PM CDT Workstation: [id number]
== END | disposition home or self-care (01) ==
LOC: LAB.O 15:40
DX: K70.31 Alcoholic cirrhosis of liver with ascites (principal); R60.1 Generalized edema

== ENCOUNTER 2017-02-13 17:54 | Emergency (ER) | payer MEDICARE, OTHER ==
[2017-02-13] MEDS: metOLazone 2.5 MG TAB PO ONE (18:50)
[2017-02-13] MEDS: FUROSEMIDE 40 MG TAB PO ONE (18:50)
--- NOTE | 2017-02-13 18:53 | ED.PDOC ---
History of Present Illness - General Chief Complaint: Cardiovascular Problem Stated Complaint: swelling to lower ext Time Seen by Provider: 02/13/17 17:58 Source: patient, family Exam Limitations: no limitations - History of Present Illness Initial Comments: the patient's a 47-year-old male presenting to the emergency room secondary toascites and lower extremity edema that has progressively gotten worse over the last month. He does have known cirrhosis. He was recently hospitalized for his COPD. He still continues to smoke of course. He also has significant history of alcohol abuse and just got out of rehabilitation approximately one month ago. He has been abstaining from alcohol. He is in here today because his legs are sore from the swelling. He does have 2+ edema to bilateral lower extremities and mild ascites of the abdomen. He had a CT scan today of the abdomen showing that he does have some ascites present on he also has a recurrence of a 4 cm pancreatic cyst. He is not having abdominal pain. No significant shortness of breath currently. He just recently increased his Lasix yesterday. He does not have any scales. He has not been doing any fluid restrictions. No history of any congestive heart failure. No chest pain. No palpitations. He does have a history of mild hypokalemia. He had lab work for the CT scan done yesterday and he does have a potassium of 3.4 on that check. Timing/Duration: unsure Severity: moderate Improving Factors: nothing Worsening Factors: nothing Associated Symptoms: denies symptoms Allergies/Adverse Reactions: Allergies NO KNOWN ALLERGY Allergy (Verified 02/13/17 18:38) Home Medications: Ambulatory Orders Metoprolol Tartrate [Lopressor] 25 mg PO BID 04/24/14 Trazodone HCl 100 mg PO BEDTIME 04/24/14 Furosemide 40 mg PO DAILY 08/12/14 Spironolactone [Aldactone] 25 mg PO BID #60 tab 03/14/15 LORazepam [Ativan] 1 mg PO TID PRN 07/27/15 Buspirone HCl 15 mg PO TID PRN 11/07/15 Levalbuterol Nebs [Xopenex NEBS] 1.25 mg NEB RTQ8 PRN 11/07/15 Sertraline HCl [Zoloft] 100 mg PO DAILY 11/07/15 Acamprosate Calcium [Acamprosate Calcium Dr] 666 mg PO TID #180 tab 05/21/17 B-Complex Vitamins [Vitamin B-Complex] 1 tab PO BID #120 tab 10/07/16 Azithromycin [Zithromax Z-Dereck] 1 ea PO DAILY #1 pack 02/07/17 Potassium Chloride [Micro-K] 10 meq PO DAILY #30 cap 02/07/17 Furosemide Tab [Lasix Tab] 40 mg PO BID #60 tab 02/13/17 metOLazone [Zaroxolyn] 5 mg PO DAILY #10 tab 02/13/17 Review of Systems - Review of Systems Constitutional: States: no symptoms reported EENTM: States: no symptoms reported Respiratory: States: cough - due to his COPD Cardiology: States: no symptoms reported Gastrointestinal/Abdominal: States: no symptoms reported, other - moderate abdominal distention Genitourinary: States: no symptoms reported Musculoskeletal: States: no symptoms reported Skin: States: no symptoms reported Neurological: States: no symptoms reported Endocrine: States: no symptoms reported All other Systems: No Change from Baseline Past Medical History (General) - Patient Medical History Hx Seizures: Yes - OD on insulin Hx Stroke: No Hx Dementia: No Hx Asthma: No Hx of COPD: Yes Hx Cardiac Disorders: Yes Hx Congestive Heart Failure: Yes Hx Pacemaker: No Hx Hypertension: Yes Hx Thyroid Disease: No Hx Diabetes: Yes Hx Gastroesophageal Reflux: Yes - liver disease Hx Renal Disease: No Hx of HIV: No Hx MRSA: No Surgical History: other - Vaccination History Hx Tetanus, Diphtheria Vaccination: No Hx Influenza Vaccination: Yes Hx Pneumococcal Vaccination: Yes - Social History Hx Tobacco Use: Yes Hx Chewing Tobacco Use: No Hx Alcohol Use: No Hx Substance Use: No Hx Substance Use Treatment: No Hx Depression: Yes Hx Physical Abuse: No Hx Emotional Abuse: No Hx Suspected Abuse: No - Female History Patient : No Family Medical History - Family History Father Age (years): 72 Living Status: Hx Family Asthma: No Hx Family Congestive Heart Failure: No Hx Family Hypertension: Yes Hx Family Stroke: No Hx Cardiac Disease: No Hx Family Diabetes: No Hx Family Cancer: No Mother Family History: No Known Name: Maggie Johnson Age (years): 66 Living Status: Still Living Hx Family Asthma: No Hx Family Congestive Heart Failure: No Hx Family Hypertension: No Hx Family Stroke: No Hx Cardiac Disease: No Hx Family Diabetes: Yes Hx Family Cancer: No Physical Exam - Physical Exam General Appearance: Alert, Comfortable, No apparent distress Eye Exam: bilateral normal Ears, Nose, Throat: hearing grossly normal, normal ENT inspection, normal pharynx Neck: full range of motion, supple Respiratory: chest non-tender, no respiratory distress, no accessory muscle use , wheezing - ild scattered Cardiovascular/Chest: normal peripheral pulses, regular rate, rhythm - once he relaxes Peripheral Pulses: radial,right: 2+, radial,left: 2+, dorsalis pedis,right: 2+, dorsalis pedis,left: 2+ Gastrointestinal/Abdominal: soft, other - ascites is present and moderate, no rebound or peritoneal signs. Rectal Exam: deferred Extremity: normal range of motion, no calf tenderness, normal capillary refill, other - 2+ edema to bilateral lower extremities. 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 He needs to make a follow-up appointment with his geographic analyst for reevaluation of the recurrent pancreatic cyst. He had lab work done yesterday so it was not repeated today. He needs to obtain scales and weigh himself each morning. He needs to maintain a 1.5 L fluid restriction for the next 3 or 4 days. He is to take 120 mg of Lasix at 7 in the morning and at 6 at night. He needs to take 5 mg of metolazone at 7 in the morning. He needs to do this for 4 days. He needs to follow-up with his primary care doctor after that for adjustments on the dosing. Additionally he needs to increase his potassium supplement 40 mEq in the morning and 20 mEq at night while he is doing this. he needs to have his electrolytes rechecked in 1 week. ER warnings were given for any significant worsening. Maintain alcohol abstinence. Additionally he does need to quit smoking as his COPD flare and will likely not cease until he dies. compression stockings or Yao wraps can be used to help remove additional edema. Departure - Departure Clinical Impression: Edema, peripheral Ascites Qualifiers: Ascites type: due to alcoholic cirrhosis Qualified Code(s): K70.31 - Alcoholic cirrhosis of liver with ascites Disposition: Discharge to Home or Self Care Condition: Fair Departure Forms: ED Discharge - Pt. Copy, Patient Portal Self Enrollment Instructions: DI for Peripheral Edema -- Bilateral Diet: low salt diet Activity: increase activity as tolerated Referrals: Romelia Liao MD [Primary Care Provider] - 1-2 Weeks Prescriptions: Furosemide Tab [Lasix Tab] 40 mg PO BID #60 tab metOLazone [Zaroxolyn] 5 mg PO DAILY #10 tab Home Medications: Ambulatory Orders Metoprolol Tartrate [Lopressor] 25 mg PO BID 04/24/14 Trazodone HCl 100 mg PO BEDTIME 04/24/14 Furosemide 40 mg PO DAILY 08/12/14 Spironolactone [Aldactone] 25 mg PO BID #60 tab 03/14/15 LORazepam [Ativan] 1 mg PO TID PRN 07/27/15 Buspirone HCl 15 mg PO TID PRN 11/07/15 Levalbuterol Nebs [Xopenex NEBS] 1.25 mg NEB RTQ8 PRN 11/07/15 Sertraline HCl [Zoloft] 100 mg PO DAILY 11/07/15 Acamprosate Calcium [Acamprosate Calcium Dr] 666 mg PO TID #180 tab 10/07/16 B-Complex Vitamins [Vitamin B-Complex] 1 tab PO BID #120 tab 10/07/16 Azithromycin [Zithromax Z-Dereck] 1 ea PO DAILY #1 pack 02/07/17 Potassium Chloride [Micro-K] 10 meq PO DAILY #30 cap 02/07/17 Furosemide Tab [Lasix Tab] 40 mg PO BID #60 tab 02/13/17 metOLazone [Zaroxolyn] 5 mg PO DAILY #10 tab 02/13/17 Additional Instructions: the patient is a 47-year-old male presenting with ascites and edema related to his cirrhosis. He needs to make a follow-up appointment with his geographic analyst for reevaluation of the recurrent pancreatic cyst. He had lab work done yesterday so it was not repeated today. He needs to obtain scales and weigh himself each morning. He needs to maintain a 1.5 L fluid restriction for the next 3 or 4 days. He is to take 120 mg of Lasix at 7 in the morning and at 6 at night. He needs to take 5 mg of metolazone at 7 in the morning. He needs to do this for 4 days. He needs to follow-up with his primary care doctor after that for adjustments on the dosing. Additionally he needs to increase his potassium supplement 40 mEq in the morning and 20 mEq at night while he is doing this. he needs to have his electrolytes rechecked in 1 week. ER warnings were given for any significant worsening. Maintain alcohol abstinence. Additionally he does need to quit smoking as his COPD flare and will likely not cease until he dies. compression stockings or Yao wraps can be used to help remove additional edema.
[2017-02-13] MEDS: CLINDAMYCIN IVPB ONE (19:10)
[2017-02-13] MEDS: SODIUM CHLORIDE 0.9% IVPB ONE (19:10)
[2017-02-13 19:32] VITALS: BP 109/80; TEMP 97.8; O2SAT 97
== END 2017-02-13 19:25 | disposition home or self-care (01) ==
LOC: ER 17:54
DX: K70.31 Alcoholic cirrhosis of liver with ascites (principal); J44.9 Chronic obstructive pulmonary disease, unspecified; F17.200 Nicotine dependence, unspecified, uncomplicated; I11.0 Hypertensive heart disease with heart failure; I50.9 Heart failure, unspecified; E11.9 Type 2 diabetes mellitus without complications

== ENCOUNTER 2017-03-27 02:13 | Emergency (ER) | payer MEDICARE ==
[2017-03-27] MEDS ORDERED: MULTIPLE VITAMIN INJ 10 ML in SODIUM CHLORIDE 0.9% 1000ML 1,000 ML IVPB ONE (02:44)
[2017-03-27] MEDS ORDERED: MULTIPLE VITAMIN INJ 10 ML, THIAMINE HCL INJ 100 MG in SODIUM CHLORIDE 0.9% 1000ML 1,00... IVS SCH (03:00)
--- NOTE | 2017-03-27 03:00 | ED.PDOC ---
History of Present Illness - General Chief Complaint: Abdominal Pain Stated Complaint: abd pain Time Seen by Provider: 03/27/17 02:16 Information Source: patient Exam Limitations: no limitations - History of Present Illness Initial Comments: Christ Philip 47 y/o male with history of chronic alcoholism ,chronic pancreatitis and pancreatic pseudocyst stated that for the last 2 days he had been having sharp intermittent generalized abdominal pains but despite symptoms he continue to drink alcoholic beverages mostly whiskey he drank 5 shots today last one at 12 noon had 2 episodes of nausea vomiting,denies dysuria , hematemesis,or melena.Had done alcohol detoxification 2 x. Abdominal Pain Onset Location: generalized abdomen Pain Radiation: no radiation Quality: moderate, intermittent, sharpness Timing/Duration: days - 2 Improving Factors: nothing Worsening Factors: nothing Associated Symptoms: other - see hpi Review of Systems - Review of Systems Constitutional: States: no symptoms reported Respiratory: States: no symptoms reported Cardiology: States: no symptoms reported Gastrointestinal/Abdominal: States: see HPI Musculoskeletal: States: no symptoms reported Skin: States: no symptoms reported Neurological: States: no symptoms reported Past Medical History (General) - Patient Medical History Hx Seizures: No Hx Stroke: No Hx Dementia: No Hx Asthma: No Hx of COPD: Yes Hx Cardiac Disorders: Yes Hx Congestive Heart Failure: Yes Hx Pacemaker: No Hx Hypertension: Yes Hx Thyroid Disease: No Hx Diabetes: Yes Hx Gastroesophageal Reflux: No Hx Renal Disease: No Hx Cancer: No Hx of HIV: No Hx Hepatitis C: No Hx MRSA: No Surgical History: other - drainage of pseudocyst - Vaccination History Hx Tetanus, Diphtheria Vaccination: No Hx Influenza Vaccination: Yes Hx Pneumococcal Vaccination: Yes - Social History Hx Tobacco Use: Yes Hx Chewing Tobacco Use: No Hx Alcohol Use: Yes - daily x 25 years Hx Substance Use: No Hx Substance Use Treatment: No Hx Depression: No Hx Physical Abuse: No Hx Emotional Abuse: No Hx Suspected Abuse: No - Activities of Daily Living Patient Lives Alone: No Grooming Ability: Independent Eating (Feeding) Ability: Independent Toileting Ability: Independent - Female History Patient : No - Triage Comment ED Triage Comment: Abd pain x 2 days now--N/V x 2 since 2200 last night. Family Medical History - Family History Father Age (years): 72 Living Status: Hx Family Asthma: No Hx Family Congestive Heart Failure: No Hx Family Hypertension: Yes Hx Family Stroke: No Hx Cardiac Disease: No Hx Family Diabetes: No Hx Family Cancer: No Mother Family History: No Known Name: Maggie Johnson Age (years): 66 Living Status: Still Living Hx Family Asthma: No Hx Family Congestive Heart Failure: No Hx Family Hypertension: No Hx Family Stroke: No Hx Cardiac Disease: No Hx Family Diabetes: Yes Hx Family Cancer: No Physical Exam - Physical Exam General Appearance: Alert, Comfortable, No apparent distress Eyes, Ears, Nose, Throat Exam: PERRL/EOMI, normal ENT inspection, pharynx normal Neck: non-tender, supple Respiratory: chest non-tender, no respiratory distress, rhonchi Cardiovascular/Chest: normal peripheral pulses, regular rate, rhythm, no murmur , tachycardia - hr-120 Peripheral Pulses: No deficit Gastrointestinal/Abdominal: normal bowel sounds, soft, no pulsatile mass, tenderness - tenderness all over,positive rebound Extremity: no pedal edema, no calf tenderness Neurologic: alert, oriented x 3 Skin Exam: normal color, warm/dry Lymphatic: no adenopathy Progress - Progress Progress: 03/27/17 05:10 Vital Signs - 8 hr 03/27/17 03/27/17 03/27/17 02:41 03:23 03:40 Temperature 95.0 F L 95.0 F L 95.5 F L Pulse Rate [ 119 H 119 H 120 H right arm] Respiratory 18 18 18 Rate Blood Pressure 109/87 109/87 111/90 [Left Arm] O2 Sat by Pulse 100 100 90 L Oximetry 03/27/17 04:44 Temperature 97.3 F L Pulse Rate [ 133 H right arm] Respiratory 18 Rate Blood Pressure 124/88 [Left Arm] O2 Sat by Pulse 92 L Oximetry Laboratory Tests 03/27/17 03/27/17 03/27/17 03:00 03:00 03:00 WBC 14.3 H RBC 4.63 L Hgb 15.8 Hct 45.4 MCV 98.1 H MCH 34.1 H MCHC 34.9 RDW 14.6 H Plt Count 316 MPV 7.8 Absolute Neuts (auto) 12.30 H Absolute Lymphs (auto) 1.30 Absolute Monos (auto) 0.60 Absolute Eos (auto) 0.00 Absolute Basos (auto) 0.10 Neutrophils % 86.0 H Lymphocytes % 9.4 L Monocytes % 3.9 Eosinophils % 0.3 L Basophils % 0.4 PT INR PTT (SP) Sodium 132 L Potassium 3.6 Chloride 88 L Carbon Dioxide 27 Anion Gap 20.6 H BUN 13 Creatinine 1.14 BUN/Creatinine Ratio 11.4 Random Glucose 202 H Serum Osmolality 270.4 L Calcium 7.9 L Magnesium Total Bilirubin 1.4 H AST 36 ALT 22 Alkaline Phosphatase 315 H Serum Total Protein 5.0 L Albumin 1.7 L Globulin 3.3 Albumin/Globulin Ratio 0.5 L Lipase < 14 L Ethyl Alcohol < 5.40 03/27/17 03/27/17 03:00 03:00 WBC RBC Hgb Hct MCV MCH MCHC RDW Plt Count MPV Absolute Neuts (auto) Absolute Lymphs (auto) Absolute Monos (auto) Absolute Eos (auto) Absolute Basos (auto) Neutrophils % Lymphocytes % Monocytes % Eosinophils % Basophils % PT 11.9 INR 1.050 PTT (SP) 28.8 Sodium Potassium Chloride Carbon Dioxide Anion Gap BUN Creatinine BUN/Creatinine Ratio Random Glucose Serum Osmolality Calcium Magnesium 1.3 L Total Bilirubin AST ALT Alkaline Phosphatase Serum Total Protein Albumin Globulin Albumin/Globulin Ratio Lipase Ethyl Alcohol 03/27/17 05:16 D/W Dr. Dozier-Surgeon [facility] [place] advised transfer to other hospital - EKG/XRAY/CT EKG: Sinus, Tachy Comments: heart rate-123;LAD CT Ordered: Yes - free air/fluid;perforated bowel Departure - Departure Clinical Impression: Bowel perforation, Fatty liver, alcoholic, Hypomagnesemia, Hypocalcemia, Hyperglycemia, unspecified Abdominal pain Qualifiers: Abdominal location: generalized Qualified Code(s): R10.84 - Generalized abdominal pain Alcoholism with alcohol dependence Qualifiers: Substance use status: unspecified alcohol-induced disorder Qualified Code(s): F10.29 - Alcohol dependence with unspecified alcohol-induced disorder Time of Disposition: 05:16 Disposition: Transfer to Hospital Condition: Fair Departure Forms: Patient Portal Self Enrollment Referrals: Romelia Liao MD [Primary Care Provider] - 1-2 Weeks Home Medications: Ambulatory Orders Metoprolol Tartrate [Lopressor] 25 mg PO BID 04/24/14 Trazodone HCl 100 mg PO BEDTIME 04/24/14 Furosemide 40 mg PO DAILY 08/12/14 Spironolactone [Aldactone] 25 mg PO BID #60 tab 10/26/15 LORazepam [Ativan] 1 mg PO TID PRN 07/27/15 Buspirone HCl 15 mg PO TID PRN 11/07/15 Levalbuterol Nebs [Xopenex NEBS] 1.25 mg NEB RTQ8 PRN 11/07/15 Sertraline HCl [Zoloft] 100 mg PO DAILY 11/07/15 Acamprosate Calcium [Acamprosate Calcium Dr] 666 mg PO TID #180 tab 10/07/16 B-Complex Vitamins [Vitamin B-Complex] 1 tab PO BID #120 tab 10/07/16 Azithromycin [Zithromax Z-Dereck] 1 ea PO DAILY #1 pack 02/07/17 Potassium Chloride [Micro-K] 10 meq PO DAILY #30 cap 02/07/17 Furosemide Tab [Lasix Tab] 40 mg PO BID #60 tab 02/13/17 metOLazone [Zaroxolyn] 5 mg PO DAILY #10 tab 02/13/17 Transfer to Outside Facility - Transfer Information Accepting Provider:: Dr. Amirah Galarza Accepting Facility: [facility] Reason for Transfer: specialized care not available
[2017-03-27] MEDS ORDERED: THIAMINE HCL INJ 100 MG/ML VIAL ONE (03:20)
[2017-03-27] MEDS ORDERED: SODIUM CHLORIDE 0.9% 1000ML 1,000 ML ONE (03:20)
[2017-03-27] MEDS ORDERED: MULTIPLE VITAMIN 10 ML VIAL ONE (03:22)
[2017-03-27] MEDS ORDERED: PANTOPRAZOLE INJECTION 80 MG in SODIUM CHLORIDE 0.9% 100ML 80 ML IVPB ONE (03:43)
[2017-03-27] MEDS ORDERED: MAGNESIUM SULFATE PREMIX 2GM 2 GM in PREMIX BAG 1 BAG IVPB ONE (03:44)
[2017-03-27] MEDS ORDERED: PANTOPRAZOLE SODIUM IV 40 MG VIAL ONE (03:47)
[2017-03-27] MEDS ORDERED: MAGNESIUM SULFATE PREMIX 2GM 50 ML IVPB ONE (04:00)
--- NOTE | 2017-03-27 04:47 | CT ---
EXAM: CT abdomen and pelvis without contrast. INDICATION: Abdominal pain, acute. TECHNIQUE: Contiguous axial CT images of the abdomen and pelvis. Intravenous contrast: Absent. Oral contrast: Absent. DLP 501 mGy-cm. This exam was performed according to our departmental dose-optimization program, which includes automated exposure control, adjustment of the mA and/or kV according to patient size and/or use of iterative reconstruction technique. COMPARISON: 02/12/2017. FINDINGS: Lower chest: Partially imaged. Lung bases: Unremarkable. Cardiac apex: Unremarkable. Solid abdominal viscera: Limited by lack of intravenous contrast. Liver: Hypodense Gallbladder: Cholelithiasis Pancreas: Unremarkable. Spleen: Unremarkable. Adrenal glands: Unremarkable. Right kidney: No urolithiasis or hydronephrosis. Left kidney: No urolithiasis or hydronephrosis. Urinary bladder: Unremarkable. Abdominal aorta: Unremarkable. Peritoneal: Free fluid: Moderate Free air: Moderate Other: No pathologic sized lymph nodes in the upper abdomen. Bowel: Stomach: Unremarkable. Small bowel: Mild circumferential thickening of the small bowel particularly along left upper quadrant Appendix: Unremarkable. Colon: Extensive diverticulosis without evidence of diverticulitis Rectum: Unremarkable. Prostate: Unremarkable. Bones: Unremarkable. IMPRESSION: Moderate amount of free air and free fluid, indicating perforated bowel with no clear source, possibly from the stomach or colon. Mild circumferential thickening of the small bowel, which may be due to an enteritis. Cholelithiasis. Fatty liver. Electronically signed by: Haroon Macias MD 03/27/2017 4:45 AM [employer] Workstation: [employer]
[2017-03-27] MEDS ORDERED: PIPERACILLIN/TAZOBACTAM 3.375 GM in SODIUM CHLORIDE 0.9% 100ML 100 ML IVPB ONE (04:51)
[2017-03-27] MEDS ORDERED: PIPERACILLIN/TAZOBACTAM 3.375 GM VIAL IVPB ONE (05:01)
[2017-03-27] MEDS ORDERED: SODIUM CHLORIDE 0.9% 100ML 100 ML IVPB ONE (05:02)
[2017-03-27] MEDS ORDERED: MORPHINE SULFATE INJ 10 MG/ML VIAL IV ONE (05:32)
[2017-03-27] MEDS ORDERED: SODIUM CHLORIDE 0.9% 1000ML 1,000 ML IVS PRN (05:33)
[2017-03-27 06:17] VITALS: BP 117/87; TEMP 98.4; O2SAT 93
== END 2017-03-27 06:10 | disposition short-term general hospital (02) ==
LOC: ER 02:13
DX: K63.1 Perforation of intestine (nontraumatic) (principal); K70.0 Alcoholic fatty liver; E83.42 Hypomagnesemia; E83.51 Hypocalcemia; F10.29 Alcohol dependence with unspecified alcohol-induced disorder; K86.1 Other chronic pancreatitis; I11.0 Hypertensive heart disease with heart failure; I50.9 Heart failure, unspecified; J44.9 Chronic obstructive pulmonary disease, unspecified; E11.9 Type 2 diabetes mellitus without complications; Z87.891 Personal history of nicotine dependence
CPT/HCPCS: 36415; 74176; 80053; 80307; 80320; 81001; 83690; 83735; 84484; 85025; 85610; 85730; 93005; J2270; J2543; J3411; J3475; J7030; J7050

== ENCOUNTER 2017-06-09 11:10 | Emergency (ER) | payer MEDICARE ==
[2017-06-09 15:19] VITALS: O2SAT 97
--- NOTE | 2017-06-09 15:43 | ED.PDOC ---
History of Present Illness - General Chief Complaint: General Stated Complaint: Left lower ext swelling and pain Time Seen by Provider: 06/09/17 15:37 Source: patient Additional Information: 47 YEAR OLD HERE WITH COMPLAINTS OF SWELLING LEFT LOWER EXTREMITY LAST 24 HOURS HE DENIES CHEST PAIN OR SHORTNESS OF BREATH HE HAD A PROLONGED HOSPITAL STAY 3 MONTHS AGO AFTER A PERFORATED DUODENAL ULCER HE HAS MULTIPLE COMORBIDITIES HIS MEDICAL PROBLEMS INCLUDE HEART FAILURE CIRRHOSIS ALCOHOL DEPENDANCE RESPIRATORY FAILURE - History of Present Illness Timing/Duration: 24 hours Severity: mild Improving Factors: nothing Associated Symptoms: denies symptoms Allergies/Adverse Reactions: Allergies Penicillins Allergy (Verified 06/09/17 15:20) Home Medications: Ambulatory Orders Metoprolol Tartrate [Lopressor] 25 mg PO BID 04/24/14 Trazodone HCl 100 mg PO BEDTIME 04/24/14 Furosemide 40 mg PO DAILY 08/12/14 LORazepam [Ativan] 1 mg PO TID PRN 07/27/15 Buspirone HCl 15 mg PO TID PRN 11/07/15 Levalbuterol Nebs [Xopenex NEBS] 1.25 mg NEB RTQ8 PRN 11/07/15 B-Complex Vitamins [Vitamin B-Complex] 1 tab PO BID #120 tab 10/07/16 Potassium Chloride [Micro-K] 10 meq PO DAILY #30 cap 02/07/17 Escitalopram Oxalate [Lexapro] 20 mg PO DAILY 06/09/17 Human Insulin Aspart [Novolog] 0 unit SUBCU AC 06/09/17 Insulin Glargine [Lantus Solostar] 20 unit SC DAILY 06/09/17 Loperamide HCl [Imodium A-D] 2 mg PO PRN PRN 06/09/17 Pantoprazole Sodium 40 mg PO DAILY 06/09/17 Review of Systems - Review of Systems Constitutional: States: see HPI EENTM: States: no symptoms reported Respiratory: States: no symptoms reported Cardiology: States: no symptoms reported Gastrointestinal/Abdominal: States: no symptoms reported Genitourinary: States: no symptoms reported Musculoskeletal: States: no symptoms reported Skin: States: no symptoms reported Neurological: States: no symptoms reported Endocrine: States: no symptoms reported Hematologic/Lymphatic: States: no symptoms reported Past Medical History (General) - Patient Medical History Hx Seizures: No Hx Stroke: No Hx Dementia: No Hx Asthma: No Hx of COPD: Yes Hx Cardiac Disorders: Yes Hx Congestive Heart Failure: Yes Hx Pacemaker: No Hx Hypertension: Yes Hx Thyroid Disease: No Hx Diabetes: Yes Hx Gastroesophageal Reflux: No Hx Renal Disease: No Hx Cancer: No Hx of HIV: No Hx Hepatitis C: No Hx MRSA: No Surgical History: other - Vaccination History Hx Tetanus, Diphtheria Vaccination: No Hx Influenza Vaccination: Yes Hx Pneumococcal Vaccination: Yes - Social History Hx Tobacco Use: Yes Hx Chewing Tobacco Use: No Hx Alcohol Use: Yes - daily x 25 years Hx Substance Use: No Hx Substance Use Treatment: No Hx Depression: No Hx Physical Abuse: No Hx Emotional Abuse: No Hx Suspected Abuse: No - Female History Patient : No Family Medical History - Family History Father Age (years): 72 Living Status: Hx Family Asthma: No Hx Family Congestive Heart Failure: No Hx Family Hypertension: Yes Hx Family Stroke: No Hx Cardiac Disease: No Hx Family Diabetes: No Hx Family Cancer: No Mother Family History: No Known Name: Maggie Johnson Age (years): 66 Living Status: Still Living Hx Family Asthma: No Hx Family Congestive Heart Failure: No Hx Family Hypertension: No Hx Family Stroke: No Hx Cardiac Disease: No Hx Family Diabetes: Yes Hx Family Cancer: No Physical Exam - Physical Exam General Appearance: Alert, Comfortable, Frail, No apparent distress Eye Exam: bilateral normal Ears, Nose, Throat: hearing grossly normal, normal ENT inspection, normal pharynx Neck: non-tender, full range of motion, supple Respiratory: chest non-tender, lungs clear, rhonchi Cardiovascular/Chest: normal peripheral pulses, regular rate, rhythm, no edema, no gallop, no JVD Peripheral Pulses: radial,right: 2+, radial,left: 2+, femoral,right: 2+, femoral ,left: 2+ Gastrointestinal/Abdominal: normal bowel sounds, non tender, soft Back Exam: normal inspection, no CVA tenderness, no vertebral tenderness Extremity: normal range of motion - LEFT LOWER EXTREMITY THERE IS SWELLING INVOLVING THE CALF AND THIGH Skin Exam: normal color, warm/dry Lymphatic: no adenopathy Progress - Progress Progress: 06/09/17 15:47 PT HAS MOST PROBABLE DEEP VENOUS THROMBOSIS INVOLVING HIS LLL WE DO NOT HAVE A SONO TECH HERE TODAY I SUGGEST HE BE SENT TO [facility] HOWEVER PATIENT PREFERS TO DRIVE THERE RATHER THAN AN AMBULANCE SERVICE SINCE DUE TO HIS FINANCIAL SITUATION HE STATES HE CANNOT AFFORD THE COST HE IS STABLE INMY OPENION TO DRIVE BY PRIVATE CAR TO [facility] TO HAVE THIS DOPPLER DONE I WILL GIVE THE FIRST DOSE OF [place] PRIOR TO DISCHARGE Departure - Departure Clinical Impression: Deep vein blood clot of left lower extremity Time of Disposition: 15:53 Disposition: Discharge to Home or Self Care Condition: Good Departure Forms: ED Discharge - Pt. Copy, Patient Portal Self Enrollment Diet: resume usual diet Activity: increase activity as tolerated Referrals: Romelia Liao MD [Primary Care Provider] - 1-2 Weeks Home Medications: Ambulatory Orders Metoprolol Tartrate [Lopressor] 25 mg PO BID 04/24/14 Trazodone HCl 100 mg PO BEDTIME 04/24/14 Furosemide 40 mg PO DAILY 08/12/14 LORazepam [Ativan] 1 mg PO TID PRN 07/27/15 Buspirone HCl 15 mg PO TID PRN 11/07/15 Levalbuterol Nebs [Xopenex NEBS] 1.25 mg NEB RTQ8 PRN 11/07/15 B-Complex Vitamins [Vitamin B-Complex] 1 tab PO BID #120 tab 10/07/16 Potassium Chloride [Micro-K] 10 meq PO DAILY #30 cap 02/07/17 Escitalopram Oxalate [Lexapro] 20 mg PO DAILY 06/09/17 Human Insulin Aspart [Novolog] 0 unit SUBCU AC 06/09/17 Insulin Glargine [Lantus Solostar] 20 unit SC DAILY 06/09/17 Loperamide HCl [Imodium A-D] 2 mg PO PRN PRN 06/09/17 Pantoprazole Sodium 40 mg PO DAILY 06/09/17 Comments: ADVISED TO GO TO [facility] FOR FURTHER INVESTIGATION
[2017-06-09] MEDS ORDERED: ENOXAPARIN SODIUM 60 MG/0.6 ML SYG SUBCU ONE (15:50)
[2017-06-09 16:19] VITALS: BP 147/108; TEMP 97.8
== END 2017-06-09 16:11 | disposition home or self-care (01) ==
LOC: ER 11:10
DX: I82.402 Acute embolism and thrombosis of unspecified deep veins of left lower extremity (principal); I11.0 Hypertensive heart disease with heart failure; I50.9 Heart failure, unspecified; J44.9 Chronic obstructive pulmonary disease, unspecified; E11.9 Type 2 diabetes mellitus without complications; Z87.891 Personal history of nicotine dependence; Z79.4 Long term (current) use of insulin; K74.60 Unspecified cirrhosis of liver

== ENCOUNTER 2017-10-24 19:55 | Observation (INO) | payer MEDICARE ==
[2017-10-24] MEDS ORDERED: MULTIPLE VITAMIN INJ 10 ML in SODIUM CHLORIDE 0.9% 1000ML 1,000 ML IVPB ONE (20:28)
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
[2017-10-24] MEDS ORDERED: SODIUM CHLORIDE 0.9% 1000ML 0 ML ONE (20:49)
[2017-10-24] MEDS ORDERED: MULTIPLE VITAMIN 10 ML VIAL ONE ×2 (20:49→21:01)
[2017-10-24] MEDS: MULTIPLE VITAMIN INJ 10 ML, THIAMINE HCL INJ 100 MG in SODIUM CHLORIDE 0.9% 1000ML 1,00... IVS SCH (20:55)
[2017-10-24] MEDS ORDERED: SODIUM CHLORIDE 0.9% 1000ML 1,000 ML ONE (21:00)
[2017-10-24] MEDS ORDERED: THIAMINE HCL INJ 100 MG/ML VIAL ONE (21:01)
--- NOTE | 2017-10-24 21:05 | RAD ---
EXAM: XR Chest, 1 View CLINICAL HISTORY: The patient is 47 years old and is Male; fall TECHNIQUE: Frontal view of the chest. COMPARISON: Prior study from 02/06/2017 FINDINGS: LUNGS: Unremarkable. No consolidation. PLEURAL SPACE: Unremarkable. No pneumothorax. Partial eventration of the RIGHT hemidiaphragm again noted. HEART: Unremarkable. No cardiomegaly. MEDIASTINUM: Unremarkable. BONES/JOINTS: Unremarkable .No acute fracture noted. IMPRESSION: - No active disease is seen in the chest. No change from the prior study. Electronically signed by: Gutierrez Lorenzana MD 10/24/2017 9:04 PM CDT
--- NOTE | 2017-10-24 21:10 | RAD ---
EXAM DESCRIPTION: Knee,Left 2 or More Views CLINICAL HISTORY: 47 years Male, bruised knee/fall COMPARISON: None. FINDINGS: 5 mm metallic BB seen within the anterior joint space at the Hoffa's fat region. No fracture or dislocation. No joint effusion. Electronically signed by: Eduardo Roman MD 10/24/2017 9:08 PM CDT
--- NOTE | 2017-10-24 21:16 | CT ---
EXAM: CT Head Without Intravenous Contrast CLINICAL HISTORY: The patient is 47 years old and is Male; frequent falls TECHNIQUE: Axial computed tomography images of the head/brain without intravenous contrast. Coronal and sagittal reformatted images were created and reviewed. COMPARISON: No relevant prior examinations for comparison. FINDINGS: BRAIN: Focal encephalomalacia is identified in the RIGHT precentral gyrus. There are smaller areas of encephalomalacia in the RIGHT occipital parietal lobe on image 19/32 of series 2. There is focal encephalomalacia in the LEFT watershed region in the parietal lobe on image 20. There is an age-indeterminate lacunar infarct in the RIGHT external capsule on image 16. There is asymmetric atrophy of the LEFT cerebellar hemisphere. There is an age-indeterminate hypodense suspected infarct of the LEFT superior cerebellar hemisphere. No hemorrhage. No midline shift. No mass effect. VENTRICLES: There is moderate global atrophy, more than expected for age. BONES: No calvarial fracture. SOFT TISSUES: Soft tissues of the scalp are unremarkable. VASCULATURE: Intracranial vascular calcifications are noted. SINUSES: Visualized paranasal sinuses are clear. MASTOID AIR CELLS: Unremarkable as visualized. No mastoid effusion. IMPRESSION: 1. There is moderate global atrophy, more than expected for age. 2. Focal encephalomalacia is identified in the RIGHT precentral gyrus. There are smaller areas of encephalomalacia in the RIGHT occipital parietal lobe on image 19/32 of series 2. There is focal encephalomalacia in the LEFT watershed region in the parietal lobe on image 20. 3. There is an age-indeterminate lacunar infarct in the RIGHT external capsule on image 16. 4. Age-indeterminate infarct of the LEFT superior cerebellar hemisphere. RECOMMENDATION: Multi-infarct dementia with advanced microvascular changes and atrophy for age without prior study for comparison. If there is concern for acute ischemic event on today's visit, consider better evaluation with magnetic resonance imaging as is warranted. Electronically signed by: Gutierrez Lorenzana MD 10/24/2017 9:15 PM CDT
[2017-10-24] MEDS ORDERED: MAGNESIUM SULFATE PREMIX 2GM 2 GM in PREMIX BAG 1 BAG IVPB ONE (21:20)
[2017-10-24] MEDS ORDERED: MAGNESIUM SULFATE PREMIX 2GM 50 ML IVPB ONE (21:58)
[2017-10-24] MEDS ORDERED: BACLOFEN 10 MG TAB PO ONE (22:17)
[2017-10-24] MEDS: KCL 40 MEQ/D5 1/2NS 1,000 ML IVS PRN (23:03)
[2017-10-24] MEDS ORDERED: cloNIDine HCL 0.1 MG TAB PO ONE (23:55)
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
[2017-10-25] MEDS ORDERED: SODIUM CHLORIDE 0.9% (FLUSH) 10 ML SYG IV PRN (00:48)
[2017-10-25] MEDS ORDERED: GLUCAGON INJ 1 MG VIAL SUBCU PRN (00:58)
[2017-10-25] MEDS ORDERED: DEXTROSE 50% 25 GM/50 ML SYG IV PRN (00:58)
[2017-10-25] MEDS ORDERED: PANTOPRAZOLE SODIUM IV 40 MG VIAL IV SCH (01:00)
[2017-10-25] MEDS ORDERED: ENOXAPARIN SODIUM 40 MG/0.4 ML SYG SUBCU SCH (01:00)
[2017-10-25] MEDS ORDERED: IV SET AND CAP CHANGE INJ INJ SCH (01:00)
[2017-10-25] MEDS: NICOTINE PATCH 14 MG TD SCH ×3 (01:56→09:55)
[2017-10-25] MEDS: KCL 40 MEQ/D5 1/2NS 1,000 ML IVS PRN ×2 (05:55→12:42)
[2017-10-25] MEDS ORDERED: POTASSIUM CHLORIDE 20 MEQ TAB PO SCH (07:30)
[2017-10-25] MEDS: INSULIN LISPRO 100 UNITS/ML PEN SUBCU SCH ×4 (08:10→21:45)
[2017-10-25] MEDS: chlordiazePOXIDE HCL 25 MG CAP PO SCH ×4 (08:17→21:08)
[2017-10-25] MEDS ORDERED: HYDROcodone 5MG/APAP 325MG 1 EA TAB PO PRN (12:30)
[2017-10-25] MEDS ORDERED: MAGNESIUM SULFATE PREMIX 2GM 2 GM in PREMIX BAG 1 BAG IVPB ONE (12:55)
[2017-10-25] MEDS ORDERED: MAGNESIUM SULFATE PREMIX 2GM 50 ML IVPB ONE (13:04)
[2017-10-25] MEDS: FUROSEMIDE 40 MG TAB PO SCH (15:22)
[2017-10-25] MEDS: ESCITALOPRAM 10 MG TAB PO SCH (15:23)
[2017-10-25] MEDS: METOPROLOL SUCCINATE XL 25 MG TAB PO SCH (15:23)
[2017-10-25] MEDS: GABAPENTIN 300 MG CAP PO SCH ×2 (15:23→21:08)
[2017-10-25] MEDS: POTASSIUM CHLORIDE 20 MEQ TAB PO SCH (15:23)
[2017-10-25] MEDS ORDERED: chlordiazePOXIDE HCL 25 MG CAP PO ONE (16:48)
[2017-10-25] MEDS: CHOLESTYRAMINE 4 GM PO SCH (17:05)
[2017-10-25] MEDS ORDERED: THIAMINE HCL INJ 100 MG/ML VIAL ONE (20:49)
[2017-10-25] MEDS ORDERED: SODIUM CHLORIDE 0.9% 1000ML 1,000 ML ONE (20:49)
[2017-10-25] MEDS ORDERED: MULTIPLE VITAMIN 10 ML VIAL ONE (20:50)
[2017-10-25] MEDS ORDERED: traZODone HCL 50 MG TAB PO SCH (21:00)
[2017-10-25] MEDS ORDERED: INSULIN GLARGINE 10 UNIT SC SCH (21:00)
[2017-10-25] MEDS ORDERED: INSULIN DETEMIR 100 UNITS/ML PEN SUBCU SCH (21:00)
[2017-10-25] MEDS: MULTIPLE VITAMIN INJ 10 ML, THIAMINE HCL INJ 100 MG in SODIUM CHLORIDE 0.9% 1000ML 1,00... IVS SCH (21:03)
[2017-10-26] MEDS: KCL 40 MEQ/D5 1/2NS 1,000 ML IVS PRN (04:15)
[2017-10-26] MEDS ORDERED: PANTOPRAZOLE SODIUM TAB 40 MG PO SCH (06:30)
[2017-10-26] MEDS: POTASSIUM CHLORIDE 20 MEQ TAB PO SCH (08:01)
[2017-10-26] MEDS: CHOLESTYRAMINE 4 GM PO SCH (08:01)
[2017-10-26] MEDS: INSULIN LISPRO 100 UNITS/ML PEN SUBCU SCH ×2 (08:30→13:02)
[2017-10-26 08:42] VITALS: O2SAT 96
[2017-10-26] MEDS ORDERED: ENOXAPARIN SODIUM 40 MG/0.4 ML SYG SUBCU SCH (09:00)
[2017-10-26] MEDS: NICOTINE PATCH 14 MG TD SCH (09:32)
[2017-10-26] MEDS: chlordiazePOXIDE HCL 25 MG CAP PO SCH (09:34)
[2017-10-26] MEDS: FUROSEMIDE 40 MG TAB PO SCH (09:34)
[2017-10-26] MEDS: GABAPENTIN 300 MG CAP PO SCH (09:36)
[2017-10-26] MEDS: METOPROLOL SUCCINATE XL 25 MG TAB PO SCH (09:36)
[2017-10-26] MEDS: ESCITALOPRAM 10 MG TAB PO SCH (09:39)
[2017-10-26 13:12] VITALS: BP 136/89; TEMP 97.6
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
== END 2017-10-26 12:20 | disposition home or self-care (01) ==
LOC: ER 19:55 → MS 19:56 → UNDOADMOB 10-25 00:20 → UNDODISOB 10-26 12:20
PROVIDERS: ADMIT Nurse Practitioner Acute Care; ATTEND Nurse Practitioner Acute Care
DX: F10.229 Alcohol dependence with intoxication, unspecified (principal); Y90.7 Blood alcohol level of 200-239 mg/100 ml; E87.6 Hypokalemia; E83.42 Hypomagnesemia; G93.89 Other specified disorders of brain; F01.50 Vascular dementia, unspecified severity, without behavioral disturbance, psychotic disturbance, mood disturbance, and anxiety; E11.649 Type 2 diabetes mellitus with hypoglycemia without coma; S89.92XA Unspecified injury of left lower leg, initial encounter; S16.1XXA Strain of muscle, fascia and tendon at neck level, initial encounter; E83.51 Hypocalcemia; R29.6 Repeated falls; J44.9 Chronic obstructive pulmonary disease, unspecified; I11.0 Hypertensive heart disease with heart failure; I50.9 Heart failure, unspecified; F17.210 Nicotine dependence, cigarettes, uncomplicated; I25.2 Old myocardial infarction; Z79.4 Long term (current) use of insulin; Z79.899 Other long term (current) drug therapy; Z88.0 Allergy status to penicillin; W18.39XA Other fall on same level, initial encounter; Z91.81 History of falling; Y93.89 Activity, other specified; Y92.009 Unspecified place in unspecified non-institutional (private) residence as the place of occurrence of the external cause
CPT/HCPCS: 96366; 96372 ×2; 96375; 96376 ×2; J7030 ×2; J3411; J1650 ×2; J3475 ×2; J1815 ×2; 80053 ×2; 80307; 82948 ×9; 36415 ×7; 82550; 80048; 82553; 85025 ×3; 85730; 85610; 84484; 81001; 80076; 80320; 83735 ×3; 84132; 36416 ×6; 83605 ×2; 71045; 73560; 70450; 94760 ×8; 99406; 99285; G0378; 96365; 96367

== ENCOUNTER 2017-10-31 18:47 | Emergency (ER) | payer MEDICARE ==
--- NOTE | 2017-10-31 19:00 | ED.PDOC ---
History of Present Illness - General Chief Complaint: Trauma Stated Complaint: Hip discomfort s/p fall Time Seen by Provider: 10/31/17 18:59 Source: patient, EMS notes reviewed - History of Present Illness Initial Comments: Christ Philip 47 y/o male with history of chronic alcoholism stated he fell on his bed this evening and according to family members had multiple falls recently he is in boot cast for right foot fracture last .Denies head,neck,chest injury states just achy right hip/pelvis Occurred: just prior to arrival Severity: moderate Injuries/Pain Location: other - see hpi Reason for Fall: unknown Loss of Consciousness: no loss of consciousness Improving Factors: rest Worsening Factors: movement Associated Symptoms (Fall): other - see hpi Allergies/Adverse Reactions: Allergies Penicillins Allergy (Verified 06/09/17 15:20) Home Medications: Ambulatory Orders Furosemide 20 mg PO DAILY 08/12/14 Human Insulin Aspart [Novolog] 0 unit SUBCU AC 06/09/17 Pantoprazole Sodium 40 mg PO DAILY 06/09/17 Bupropion HCl [Bupropion HCl Sr] 150 mg PO BID 10/25/17 Cholestyramine Powder [Questran Powder] 4 gm PO BIDFD 10/25/17 Escitalopram [Lexapro] 20 mg PO DAILY 10/25/17 Gabapentin [Neurontin] 300 mg PO BID 10/25/17 Metoprolol Succinate [Metoprolol Succinate ER] 25 mg PO DAILY 10/25/17 Potassium Chloride [Micro-K] 20 meq PO DAILY 10/25/17 traZODone HCL [Desyrel] 50 mg PO BEDTIME 10/25/17 Insulin Glargine [Lantus Solostar] 5 unit SC BEDTIME #0 10/26/17 chlordiazePOXIDE HCL [Librium] 25 mg PO TID #18 cap 10/26/17 Review of Systems - Review of Systems Constitutional: States: weakness EENTM: States: no symptoms reported Respiratory: States: no symptoms reported Musculoskeletal: States: see HPI Neurological: States: no symptoms reported All other Systems: Reviewed and Negative, No Change from Baseline Past Medical History (General) - Patient Medical History Hx Seizures: Yes Hx Stroke: Yes - TIAs Hx Dementia: No Hx Asthma: No Hx of COPD: Yes Hx Cardiac Disorders: Yes - [place] Hx Congestive Heart Failure: Yes Hx Pacemaker: No Hx Hypertension: Yes Hx Thyroid Disease: No Hx Diabetes: Yes Hx Gastroesophageal Reflux: Yes Hx Renal Disease: No Hx Cancer: No Hx of HIV: No Hx Hepatitis C: No Hx MRSA: No Hx Other PMH: Yes - pancreatitis,pancreas pseudocyst Surgical History: other - explore lap-bowel perforation - Vaccination History Hx Tetanus, Diphtheria Vaccination: No Hx Influenza Vaccination: Yes Hx Pneumococcal Vaccination: Yes - Social History Hx Tobacco Use: Yes Hx Chewing Tobacco Use: No Hx Alcohol Use: Yes Hx Substance Use: Yes Hx Substance Use Treatment: No Hx Depression: No Hx Physical Abuse: No Hx Emotional Abuse: No Hx Suspected Abuse: No - Female History Patient : No Physical Exam - Physical Exam General Appearance: Alert, Comfortable, No apparent distress Head Injury: no evidence of injury Eye Exam: bilateral normal ENT Exam: hearing grossly normal, no evidence of ENT injury, no dental injury Peripheral Pulses: radial,right: 2+, radial,left: 2+ Cardiovascular/Respiratory: regular rate, rhythm, no M/R/G, normal peripheral pulses Gastrointestinal/Abdominal: normal bowel sounds, non tender, soft Genitalia: normal rectal tone, heme positive stool Back Exam: no vertebral tenderness Extremity Exam: pelvis stable, bony-point tenderness - right hip>left Neurologic: alert, oriented x 3, sensory deficit - sole of both feet - [place] Coma Score Best Eye Response ([place]): (4) open spontaneously Best Verbal Response ([place]): (5) oriented Best Motor Response ([place]): (6) obeys commands [place] Total: 15 Progress - Progress Progress: 10/31/17 19:22 Vital Signs - 8 hr 10/31/17 18:49 Temperature 98.5 F Pulse Rate [ 78 Right Radial] Respiratory 20 Rate Blood Pressure 142/104 [Left Arm] O2 Sat by Pulse 99 Oximetry - Results/Orders Results/Orders: Laboratory Results - last 24 hr 10/31/17 10/31/17 10/31/17 20:24 21:12 21:12 WBC 6.5 RBC 3.14 L Hgb 11.4 L Hct 33.5 L MCV 106.6 H MCH 36.3 H MCHC 34.2 RDW 15.1 H Plt Count 82 L MPV 8.5 Absolute Neuts (auto) 4.70 Absolute Lymphs (auto) 1.10 Absolute Monos (auto) 0.60 Absolute Eos (auto) 0.10 Absolute Basos (auto) 0.00 Neutrophils % 71.8 Lymphocytes % 16.9 L Monocytes % 9.0 Eosinophils % 2.0 Basophils % 0.3 Sodium 138 Potassium 3.7 Chloride 105 Carbon Dioxide 28 Anion Gap 8.7 L BUN 6 L Creatinine 0.96 BUN/Creatinine Ratio 6.3 L Random Glucose 143 H Serum Osmolality 275.8 Calcium 7.9 L Total Bilirubin 0.4 AST 19 ALT 14 Alkaline Phosphatase 129 H Serum Total Protein 4.5 L Albumin 1.8 L Globulin 2.7 Albumin/Globulin Ratio 0.7 L Urine Color Urine Appearance Urine pH Ur Specific [place] Urine Protein Urine Glucose (UA) Urine Ketones Urine Blood Urine Nitrite Urine Bilirubin Urine Urobilinogen Ur Leukocyte Esterase Urine RBC Urine WBC Ur Epithelial Cells Urine Bacteria Urine Mucus Stool Occult Blood Positive 10/31/17 21:57 WBC RBC Hgb Hct MCV MCH MCHC RDW Plt Count MPV Absolute Neuts (auto) Absolute Lymphs (auto) Absolute Monos (auto) Absolute Eos (auto) Absolute Basos (auto) Neutrophils % Lymphocytes % Monocytes % Eosinophils % Basophils % Sodium Potassium Chloride Carbon Dioxide Anion Gap BUN Creatinine BUN/Creatinine Ratio Random Glucose Serum Osmolality Calcium Total Bilirubin AST ALT Alkaline Phosphatase Serum Total Protein Albumin Globulin Albumin/Globulin Ratio Urine Color Yellow Urine Appearance Clear Urine pH 6.0 Ur Specific [place] 1.025 Urine Protein Negative Urine Glucose (UA) Negative Urine Ketones Negative Urine Blood Negative Urine Nitrite Negative Urine Bilirubin Negative Urine Urobilinogen 0.2 Ur Leukocyte Esterase Negative Urine RBC 0 Urine WBC 1-3 Ur Epithelial Cells 0-1 Urine Bacteria Rare Urine Mucus Small Stool Occult Blood - EKG/XRAY/CT XRAY: hip/pelvis -no fracture Departure - Departure Clinical Impression: Frequent falls, Continuous chronic alcoholism Gastrointestinal bleeding Qualifiers: GI bleed type/associated pathology: unspecified gastrointestinal hemorrhage type Qualified Code(s): K92.2 - Gastrointestinal hemorrhage, unspecified Time of Disposition: 23:23 Disposition: Transfer to Hospital Condition: Fair Departure Forms: Patient Portal Self Enrollment Referrals: Romelia Liao MD [Primary Care Provider] - 1-2 Weeks Home Medications: Ambulatory Orders Furosemide 20 mg PO DAILY 08/12/14 Human Insulin Aspart [Novolog] 0 unit SUBCU AC 06/09/17 Pantoprazole Sodium 40 mg PO DAILY 06/09/17 Bupropion HCl [Bupropion HCl Sr] 150 mg PO BID 10/25/17 Cholestyramine Powder [Questran Powder] 4 gm PO BIDFD 10/25/17 Escitalopram [Lexapro] 20 mg PO DAILY 10/25/17 Gabapentin [Neurontin] 300 mg PO BID 10/25/17 Metoprolol Succinate [Metoprolol Succinate ER] 25 mg PO DAILY 10/25/17 Potassium Chloride [Micro-K] 20 meq PO DAILY 10/25/17 traZODone HCL [Desyrel] 50 mg PO BEDTIME 10/25/17 Insulin Glargine [Lantus Solostar] 5 unit SC BEDTIME #0 10/26/17 chlordiazePOXIDE HCL [Librium] 25 mg PO TID #18 cap 10/26/17 Transfer to Outside Facility - Transfer Information Accepting Provider:: D/W -Hospitalist Accepting Facility: [facility]
[2017-10-31] MEDS ORDERED: CYANOCOBALAMIN INJ 1,000 MCG/ML INJ IM ONE (19:13)
--- NOTE | 2017-10-31 19:42 | RAD ---
Pelvis and bilateral hips total five view on 10/31/2017 Clinical indications: Bilateral hip pain after fall COMPARISON: None FINDINGS: The hips are well located. The SI joints are well aligned. Incidental bone island is noted in the right femoral neck. There are no fractures. No significant degenerative changes are noted in the hips. No other bony abnormality is noted. Mild vascular calcifications are noted. IMPRESSION: No acute abnormality. Electronically signed by: Chad Rhodes 10/31/2017 7:41 PM CDT
[2017-10-31] MEDS ORDERED: PANTOPRAZOLE SODIUM TAB 40 MG PO ONE (20:22)
[2017-10-31] MEDS ORDERED: PANTOPRAZOLE SODIUM IV 40 MG VIAL IV ONE (21:03)
[2017-10-31 23:48] VITALS: O2SAT 97
[2017-11-01 00:23] VITALS: BP 148/94; TEMP 97.6
== END 2017-11-01 00:10 | disposition short-term general hospital (02) ==
LOC: ER 18:47
DX: K92.2 Gastrointestinal hemorrhage, unspecified (principal); F10.20 Alcohol dependence, uncomplicated; M25.551 Pain in right hip; R53.1 Weakness; R56.9 Unspecified convulsions; J44.9 Chronic obstructive pulmonary disease, unspecified; I25.2 Old myocardial infarction; I50.9 Heart failure, unspecified; I11.0 Hypertensive heart disease with heart failure; E11.9 Type 2 diabetes mellitus without complications; K21.9 Gastro-esophageal reflux disease without esophagitis; F17.200 Nicotine dependence, unspecified, uncomplicated; Z91.81 History of falling; Z87.19 Personal history of other diseases of the digestive system; Z87.81 Personal history of (healed) traumatic fracture; Z79.4 Long term (current) use of insulin; Z79.899 Other long term (current) drug therapy; Z86.73 Personal history of transient ischemic attack (TIA), and cerebral infarction without residual deficits; Z88.0 Allergy status to penicillin; W01.198A Fall on same level from slipping, tripping and stumbling with subsequent striking against other object, initial encounter
CPT/HCPCS: 36415; 72170; 73521; 80053; 81001; 82270; 85025; J3420